=== PATIENT | male | born 1990 | race African-American/Black ===

== ENCOUNTER 2016-07-17 18:58 | Emergency (ER) | payer MEDICAID ==
[2016-07-17 19:29] VITALS: BP 157/77
--- NOTE | 2016-07-17 20:23 | EDM.PDOC ---
[id number] 4d HIT HAND Time Seen by Provider: 07/17/16 20:15 Source: Reports: Patient, RN notes reviewed History Limitations: Reports: No limitations - History of Present Illness INITIAL COMMENTS - FREE TEXT/NARRATIVE: Here with his Chief complaint Left hand injury HPI He was angry and punched a wall with his left hand this morning. Swelling and pain all day no laceration. Pain isn't bad enough to keep him awake but it does hurt. Did not take any analgesics at home No other injuries Allergies/ADRs: Allergies Penicillins Allergy (Verified 04/27/13 08:23) Cannot Remember Home Medications: Ambulatory Orders Ketoconazole [Ketoconazole 2%] 1 applic TOP WEEKLY 11/24/15 [Confirmed 07/17/16] Hydrocodone/Acetaminophen [Hydrocodon-Acetaminophen 5-325] 1 - 2 each PO Q4H PRN #8 tablet 07/17/16 Past Medical History Respiratory History: Reports: Asthma, Other (see below) Other Respiratory History: childhood asthma Dermatologic History: Reports: Other (see below) Other Dermatologic History: states he has problems with skin "turning different colors." currently uses ointment for problem - Past Surgical History Respiratory Surgical History: Reports: None GI Surgical History: Reports: Hernia repair/other Neurological Surgical History: Reports: None Dermatological Surgical History: Reports: None Social & Family History - Family History Family Medical History: Noncontributory - Tobacco Use Smoking Status *Q: Current Some Day Smoker Years of Tobacco use: 5 Packs/Tins Daily: 1 Used Tobacco, but Quit: Yes Month Tobacco Last Used: 10/2015 Second Hand Smoke Exposure: No - Caffeine Use Caffeine Use: Reports: Soda - Alcohol Use Days Per Week of Alcohol Use: 0 - Recreational Drug Use Recreational Drug Use: No Review of Systems - Review of Systems Review Of Systems: ROS reveals no pertinent complaints other than HPI. Skin: Reports: other (Swelling and pain dorsum of left hand particularly on the ulnar aspect) Trauma Exam - Physical Exam Exam: See Below Exam Limited By: No limitations General Appearance: Reports: alert, mild distress, other (Elevated blood pressure otherwise vital signs normal) Head: Reports: atraumatic, normocephalic Respiratory Exam: Reports: no respiratory distress, no accessory muscle use Cardiovascular: Reports: normal peripheral pulses, regular rate, rhythm Extremities: Reports: other (Edema and swelling of the left hand especially dorsal aspect overlying the fourth and fifth left metacarpal bones. Decreased range of motion because of swelling. No skin laceration. No obvious skin discoloration, there is scarring from previous injury as a child.) Neurologic: Reports: no motor/sensory deficits, alert, oriented x 3 Course - Vital Signs Last Recorded V/S: Last Vital Signs Temp 37.2 C 07/17/16 19:26 Pulse 88 07/17/16 19:26 Resp 18 07/17/16 19:26 BP 157/77 H 07/17/16 19:26 Pulse Ox 97 07/17/16 19:26 - Orders/Labs/Meds Orders: Active Orders 24 hr Category Date Time Status Hand Comp Min 3V Lt [CR] Stat Exams 07/17/16 20:19 Taken - Re-Assessments/Exams Free Text/Narrative Re-Assessment/Exam: 07/17/16 20:22 26-year-old male with blunt injury to left hand this morning, swelling and decreased range of motion. No obvious deformity but there is swelling. X-ray left hand undisplaced fracture of the base of the left fourth metacarpal bone Star wrap to hand Followup within one week with primary clinic Pain medicines as below Currently unemployed so he will not be missing work 07/17/16 23:47 Departure - Departure Time of Disposition: 20:47 Disposition: Home, Self-Care 01 Condition: good Clinical Impression: Fracture of base of fourth metacarpal bone of left hand Qualifiers: Encounter type: initial encounter Fracture type: closed Fracture alignment: nondisplaced Qualified Code(s): S62.345A - Nondisplaced fracture of base of fourth metacarpal bone, left hand, initial encounter for closed fracture Prescriptions: Hydrocodone/Acetaminophen [Hydrocodon-Acetaminophen 5-325] 1 - 2 each PO Q4H PRN #8 tablet PRN Reason: Moderate to severe pain Instructions: Metacarpal Fracture, [id number] Referrals: Rafy Frederick PA-C [Primary Care Provider] - Forms: ED Department Discharge Additional Instructions: Fracture of the base of the fourth metacarpal bone of the left hand This appears to be in good position However have it rechecked within 3-5 days, BP x-rays may be necessary. Using Star wrap until the swelling goes down. Take nonprescription pain medications during the day and then prescription pain medications if the pain is severe or at night to help you sleep if needed. You'll be contacted if the radiology report differs from the opinion given dayron. It's anticipated that can take several weeks for the bone to fully heal, avoid injury to the hand, but use a hand within the limits of the pain after a few days rest - My Orders Last 24 Hours: My Active Orders 07/17/16 20:19 Hand Comp Min 3V Lt [CR] Stat - Assessment/Plan Last 24 Hours: My Active Orders 07/17/16 20:19 Hand Comp Min 3V Lt [CR] Stat
--- NOTE | 2016-07-18 09:32 | CR ---
Fourth metacarpal base fracture. This is nondisplaced. Remainder intact.
== END 2016-07-17 21:00 | disposition home or self-care (01) ==
LOC: JP.ED 18:58
DX: S62.345A Nondisplaced fracture of base of fourth metacarpal bone, left hand, initial encounter for closed fracture (principal); F17.210 Nicotine dependence, cigarettes, uncomplicated; Z98.890 Other specified postprocedural states; Z88.0 Allergy status to penicillin; W22.8XXA Striking against or struck by other objects, initial encounter
CPT/HCPCS: 73130-26-LT; 73130-LT; 99284

== ENCOUNTER 2017-02-24 17:08 | Emergency (ER) | payer MEDICAID ==
--- NOTE | 2017-02-24 19:09 | EDM.PDOC ---
ED HPI GENERAL MEDICAL PROBLEM - General Chief Complaint: General Stated Complaint: SOB Time Seen by Provider: 02/24/17 18:50 Source of Information: Reports: Patient, Old Records History Limitations: Reports: No Limitations - History of Present Illness INITIAL COMMENTS - FREE TEXT/NARRATIVE: 27 yo male presents with intermittent episodes of dry mouth and feeling like he might pass out since mid to late morning today. Was seen in urgent care recently for similar sx's and was told it was anxiety, but no tx was given. He has recently been noted to have elevated BS and cholesterol, but his primary is waiting to recheck these when he his fasting. He has no hx of HTN, but has a + FHx of HTN. He had transient nausea without vomiting this morning. No chest pain. Thought his heart was irregular or fast earlier. Most of his sx's have resolved while waiting to be seen in the ER. Onset: Today Onset Date: 02/24/17 Onset Time: 10:00 Duration: Intermittent, Improving Location: Reports: Generalized Quality: Reports: Other (no pain) Severity: Moderate Improves with: Reports: Other (? time) Worsens with: Reports: Other (unknown) Context: Reports: Other (Has untreated elevated BP, glucose, lipids, FHx of HTN) Associated Symptoms: Reports: Malaise (ongoing for a couple mos.), Nausea/ Vomiting (not now). 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) (none) - Related Data Allergies Allergy/AdvReac Type Severity Reaction Status Date / Time Penicillins Allergy Cannot Verified 04/27/13 08:23 Remember Home Meds: Home Meds Ketoconazole [Ketoconazole 2%] 1 applic TOP WEEKLY 11/24/15 [History] Past Medical History Respiratory History: Reports: Asthma, Other (See Below) Other Respiratory History: childhood asthma Dermatologic History: Reports: Other (See Below) Other Dermatologic History: states he has problems with skin "turning different colors." currently uses ointment for problem - Past Surgical History HEENT Surgical History: Reports: Eye Surgery GI Surgical History: Reports: Hernia Repair/Other Neurological Surgical History: Reports: None Social & Family History - Family History Family Medical History: Noncontributory - Tobacco Use Smoking Status *Q: Former Smoker Years of Tobacco use: 5 Packs/Tins Daily: 1 Used Tobacco, but Quit: Yes Month Tobacco Last Used: dec Second Hand Smoke Exposure: No - Caffeine Use Caffeine Use: Reports: Soda - Alcohol Use Days Per Week of Alcohol Use: 0 - Recreational Drug Use Recreational Drug Use: No ED ROS GENERAL - Review of Systems Review Of Systems: See Below Constitutional: Reports: Malaise (x 2 mos.), Fatigue (x 2 mos.). Denies: Fever , Weakness, Diaphoresis, Decreased Appetite HEENT: Reports: No Symptoms Respiratory: Reports: No Symptoms Cardiovascular: Reports: Palpitations (this am, resolved.) Endocrine: Reports: Fatigue (x 2 mos.), High Glucose (noted in urgent care recently.), Other (dry mouth this kandace.). Denies: Low Glucose GI/Abdominal: Reports: No Symptoms : Reports: No Symptoms Musculoskeletal: Reports: No Symptoms Skin: Reports: No Symptoms Neurological: Reports: No Symptoms Psychiatric: Reports: Anxiety (dx in urgent care recently, not on tx.) ED EXAM, GENERAL - Physical Exam Exam: See Below Exam Limited By: No Limitations General Appearance: Alert, WD/WN, No Apparent Distress, Obese Eye Exam: Bilateral Eye: Normal Inspection Ears: Normal External Exam, Normal Canal, Hearing Grossly Normal, Normal TMs Ear Exam: Bilateral Ear: Auricle Normal, Canal Normal Nose: Normal Inspection, Normal Mucosa, No Blood Throat/Mouth: Normal Inspection, Normal Lips, Normal Teeth, Normal Oropharynx, Normal Voice, No Airway Compromise Head: Atraumatic, Normocephalic Neck: Normal Inspection, Supple, Non-Tender Respiratory/Chest: No Respiratory Distress, Lungs Clear, Normal Breath Sounds, No Accessory Muscle Use Cardiovascular: Regular Rate, Rhythm, No Edema GI/Abdominal: Normal Bowel Sounds, Soft, Non-Tender, No Distention Back Exam: Normal Inspection. 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 Last Recorded V/S: Last Vital Signs Temp 36.0 C 02/24/17 18:03 Pulse 95 02/24/17 18:03 Resp 14 02/24/17 18:03 BP 161/84 H 02/24/17 18:03 Pulse Ox 96 02/24/17 18:03 Orthostatic Blood Pressure [ 146/89 Standing] Orthostatic Blood Pressure [ 156/83 Sitting] Orthostatic Blood Pressure [ 155/89 Supine] - Orders/Labs/Meds Orders: Active Orders 24 hr Category Date Time Status Cardiac Monitoring [RC] .As Directed Care 02/24/17 19:03 Active Orthostatic Vital Signs [RC] ASDIRECTED Care 02/24/17 19:03 Active Citalopram [Celexa] Med 02/24/17 20:41 Once 20 mg PO ONETIME ONE Labs: Laboratory Tests 02/24/17 02/24/17 Range/Units 19:13 20:10 Sodium 140 (140-148) mmol/L Potassium 4.1 (3.6-5.2) mmol/L Chloride 103 (100-108) mmol/L Carbon Dioxide 29 (21-32) mmol/L Anion Gap 8.1 (5.0-14.0) mmol/L BUN 9 (7-18) mg/dL Creatinine 1.0 (0.8-1.3) mg/dL Est Cr Clr Drug Dosing 109.98 mL/min Estimated GFR (MDRD) > 60 (>60) Glucose 117 H (74-106) mg/dL Calcium 9.2 (8.5-10.1) mg/dL Urine Color Yellow Urine Appearance Clear Urine pH 8.0 (4.5-8.0) Ur Specific [place] 1.015 (1.008-1.030) Urine Protein Negative (NEGATIVE) mg/dL Urine Glucose (UA) Normal (NEGATIVE) mg/dL Urine Ketones Negative (NEGATIVE) mg/dL Urine Occult Blood Negative (NEGATIVE) Urine Nitrite Negative (NEGAITVE) Urine Bilirubin Negative (NEGATIVE) Urine Urobilinogen Normal (NORMAL) mg/dL Ur Leukocyte Esterase Negative (NEGATIVE) Urine RBC 0-5 (0-5) Urine WBC 0-5 (0-5) Ur Epithelial Cells Rare Amorphous Sediment Not seen Urine Bacteria Rare Urine Mucus Not seen Departure - Departure Time of Disposition: 20:50 Disposition: Home, Self-Care 01 Condition: Good Clinical Impression: Anxiety - Discharge Information Referrals: Rafy Frederick PA-C [Primary Care Provider] - Forms: ED Department Discharge - My Orders Last 24 Hours: My Active Orders 02/24/17 19:03 Cardiac Monitoring [RC] .As Directed Orthostatic Vital Signs [RC] ASDIRECTED 02/24/17 20:41 Citalopram [Celexa] 20 mg PO ONETIME ONE - Assessment/Plan Last 24 Hours: My Active Orders 02/24/17 19:03 Cardiac Monitoring [RC] .As Directed Orthostatic Vital Signs [RC] ASDIRECTED 02/24/17 20:41 Citalopram [Celexa] 20 mg PO ONETIME ONE
[2017-02-24] MEDS ORDERED: Citalopram 20 MG Tab PO ONE (20:41)
[2017-02-24 20:50] VITALS: BP 146/89
== END 2017-02-24 20:58 | disposition home or self-care (01) ==
LOC: JP.ED 17:08
DX: F41.9 Anxiety disorder, unspecified (principal); Z88.0 Allergy status to penicillin; Z87.891 Personal history of nicotine dependence
CPT/HCPCS: 36415; 80048; 81001; 99285; A9270

== ENCOUNTER 2017-02-25 20:20 | Emergency (ER) | payer MEDICAID ==
[2017-02-25] MEDS ORDERED: LORazepam 2 MG/ML MDV IVPUSH ONE (21:38)
[2017-02-25] MEDS ORDERED: Ondansetron 4 MG/2 ML SDV IVPUSH ONE (21:38)
[2017-02-25] MEDS ORDERED: Sodium Chloride 0.9% 1,000 ML IV SCH (21:45)
[2017-02-25 22:54] VITALS: BP 131/65
--- NOTE | 2017-02-25 23:35 | EDM.PDOC ---
ED HPI GENERAL MEDICAL PROBLEM - General Chief Complaint: General Stated Complaint: ILLNESS Time Seen by Provider: 02/25/17 21:07 Source of Information: Reports: Patient, Family () - History of Present Illness INITIAL COMMENTS - FREE TEXT/NARRATIVE: shortness of breath; this is a 27 year old male present to ER with , concerns of ongoing shortness of breath, intermittent episodes of shortness of breath. Report he is worried he may have a heart attack, or fluid around his heart, something wrong in his chest. This has been going on for a few days. came to be sure didn't have a blood clot or heart attack. he was seen yesterday in ER with similar concerns, treated for anxiety, also seen in Urgent Care today, given hydroxyzine, but didn't help. family hx of Father of massive heart attack at age 42 years on 2000. Onset: Gradual Duration: Day(s):. No: Chronic (fatigue for 2 months. 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) Chest Pain Score (Numeric/FACES): 3 - Related Data Allergies Allergy/AdvReac Type Severity Reaction Status Date / Time Penicillins Allergy Cannot Verified 04/27/13 08:23 Remember Home Meds: Home Meds Ketoconazole [Ketoconazole 2%] 1 applic TOP WEEKLY 11/24/15 [History] Citalopram [Citalopram HBr] 20 mg PO DAILY #30 tab 02/24/17 [Rx] hydrOXYzine Pamoate [Hydroxyzine Pamoate] 25 mg PO Q6HR PRN 02/25/17 [History] Past Medical History Respiratory History: Reports: Asthma, Other (See Below) Other Respiratory History: childhood asthma Psychiatric History: Reports: Anxiety, Depression Dermatologic History: Reports: Other (See Below) Other Dermatologic History: states he has problems with skin "turning different colors." currently uses ointment for problem - Past Surgical History HEENT Surgical History: Reports: Eye Surgery GI Surgical History: Reports: Hernia Repair/Other Neurological Surgical History: Reports: None Social & Family History - Family History Family Medical History: Noncontributory - Tobacco Use Smoking Status *Q: Former Smoker Years of Tobacco use: 10 Packs/Tins Daily: 0.5 Used Tobacco, but Quit: No Month Tobacco Last Used: dec Second Hand Smoke Exposure: No - Caffeine Use Caffeine Use: Reports: None - Alcohol Use Days Per Week of Alcohol Use: 0 - Recreational Drug Use Recreational Drug Use: No - Living Situation & Occupation Living situation: Reports: (lives with in [place], [place].) ED ROS GENERAL - Review of Systems Review Of Systems: See Below Constitutional: Reports: Malaise, Fatigue HEENT: Reports: No Symptoms Respiratory: Reports: Shortness of Breath, Cough (occasionaly) Cardiovascular: Reports: Other (reports has been exercising, jogging, lifting wt , , pushing; no chest pain with activity.) Endocrine: Reports: No Symptoms GI/Abdominal: Reports: Nausea (feeling sick to stomache) : Reports: No Symptoms Musculoskeletal: Reports: No Symptoms Skin: Reports: No Symptoms Neurological: Reports: No Symptoms Psychiatric: Reports: Anxiety (reports hx of anxiety, panic and depression since childhood. ) Hematologic/Lymphatic: Reports: No Symptoms Immunologic: Reports: No Symptoms ED EXAM, GENERAL - Physical Exam Exam: See Below Exam Limited By: No Limitations General Appearance: Alert, WD/WN, No Apparent Distress Eye Exam: Bilateral Eye: PERRL Ears: Normal External Exam, Normal Canal, Hearing Grossly Normal, Normal TMs Ear Exam: Bilateral Ear: Auricle Normal, Canal Normal, TM normal Nose: Normal Inspection, Normal Mucosa, No Blood Throat/Mouth: Normal Inspection, Normal Lips, Normal Teeth, Normal Gums, Normal Oropharynx, Normal Voice, No Airway Compromise Head: Atraumatic, Normocephalic Neck: Normal Inspection, Supple, Non-Tender, Full Range of Motion Respiratory/Chest: No Respiratory Distress, Lungs Clear, Normal Breath Sounds, No Accessory Muscle Use, Chest Non-Tender GI/Abdominal: Normal Bowel Sounds, Soft, Non-Tender, No Organomegaly, No Distention, No Abnormal Bruit, No Mass (Male) Exam: Deferred Rectal (Males) Exam: Deferred Back Exam: Normal Inspection, Full Range of Motion, NT Extremities: Normal Inspection, Normal Range of Motion, Non-Tender, Normal Capillary Refill, No Pedal Edema Neurological: Alert, Oriented, CN II-XII Intact, Normal Cognition, Normal Gait, Normal Reflexes, No Motor/Sensory Deficits Psychiatric: Normal Affect, Normal Mood Skin Exam: Warm, Dry, Intact, Normal Color, Tattoo(s), Other (extremely dry skin ) Course - Vital Signs Last Recorded V/S: Last Vital Signs Temp 37.1 C 02/25/17 20:55 Pulse 75 02/25/17 22:53 Resp 14 02/25/17 22:53 BP 131/65 02/25/17 22:53 Pulse Ox 93 L 02/25/17 22:53 - Orders/Labs/Meds Orders: Active Orders 24 hr Category Date Time Status EKG Documentation Completion [RC] ASDIRECTED Care 02/25/17 21:36 Active Chest 2V [CR] Urgent Exams 02/25/17 21:35 Taken Sodium Chloride 0.9% [Normal Saline] 1,000 ml Med 02/25/17 21:45 Active IV ASDIRECTED EKG 12 Lead [EK] Urgent Ther 02/25/17 21:35 Ordered Medication Orders Sodium Chloride (Normal Saline) 1,000 mls @ 999 mls/hr IV ASDIRECTED GREGORIO Last Admin: 02/25/17 21:56 Dose: 999 mls/hr Labs: Laboratory Tests 02/25/17 02/25/17 02/25/17 Range/Units 21:54 21:54 21:54 WBC 10.0 (4.5-11.0) K/uL RBC 6.09 H (4.30-5.90) M/uL Hgb 16.4 H (12.0-15.0) g/dL Hct 47.5 (40.0-54.0) % MCV 78 L (80-98) fL MCH 27 (27-31) pg MCHC 35 (32-36) % Plt Count 216 (150-400) K/uL Neut % (Auto) 68 H (36-66) % Lymph % (Auto) 21 L (24-44) % [place] % (Auto) 10 H (2-6) % Eos % (Auto) 1 L (2-4) % Baso % (Auto) 1 (0-1) % D-Dimer, Quantitative < 100 (0.0-400.0) ng/mL Sodium 139 L (140-148) mmol/L Potassium 4.4 (3.6-5.2) mmol/L Chloride 103 (100-108) mmol/L Carbon Dioxide 28 (21-32) mmol/L Anion Gap 12.4 (5.0-14.0) mmol/L BUN 9 (7-18) mg/dL Creatinine 0.9 (0.8-1.3) mg/dL Est Cr Clr Drug Dosing 122.20 mL/min Estimated GFR (MDRD) > 60 (>60) Glucose 109 H (74-106) mg/dL Calcium 9.3 (8.5-10.1) mg/dL Troponin I < 0.017 (0.000-0.056) ng/mL Amylase (25-115) U/L Lipase (73-393) U/L TSH, Ultra Sensitive (0.358-3.740) uIU/mL 02/25/17 Range/Units 21:54 WBC (4.5-11.0) K/uL RBC (4.30-5.90) M/uL Hgb (12.0-15.0) g/dL Hct (40.0-54.0) % MCV (80-98) fL MCH (27-31) pg MCHC (32-36) % Plt Count (150-400) K/uL Neut % (Auto) (36-66) % Lymph % (Auto) (24-44) % [place] % (Auto) (2-6) % Eos % (Auto) (2-4) % Baso % (Auto) (0-1) % D-Dimer, Quantitative (0.0-400.0) ng/mL Sodium (140-148) mmol/L Potassium (3.6-5.2) mmol/L Chloride (100-108) mmol/L Carbon Dioxide (21-32) mmol/L Anion Gap (5.0-14.0) mmol/L BUN (7-18) mg/dL Creatinine (0.8-1.3) mg/dL Est Cr Clr Drug Dosing mL/min Estimated GFR (MDRD) (>60) Glucose (74-106) mg/dL Calcium (8.5-10.1) mg/dL Troponin I (0.000-0.056) ng/mL Amylase 42 (25-115) U/L Lipase 81 (73-393) U/L TSH, Ultra Sensitive 1.026 (0.358-3.740) uIU/mL Meds: Medications Generic Name Dose Route Start Last Admin Trade Name Freq PRN Reason Stop Dose Admin Sodium Chloride 1,000 mls @ 999 mls/hr 02/25/17 21:45 02/25/17 21:56 Normal Saline IV 999 mls/hr ASDIRECTED GREGORIO Administration Discontinued Medications Generic Name Dose Route Start Last Admin Trade Name Dani PRN Reason Stop Dose Admin Lorazepam 1 mg 02/25/17 21:38 02/25/17 22:23 Ativan IVPUSH 02/25/17 21:39 1 mg ONETIME ONE Administration Ondansetron HCl 4 mg 02/25/17 21:38 02/25/17 22:20 Zofran IVPUSH 02/25/17 21:39 4 mg ONETIME ONE Administration - Re-Assessments/Exams Free Text/Narrative Re-Assessment/Exam: 02/26/17 01:51 labs;cbc, chemistry, d-dimer, amylase, lipase, tsh, troponin all within normal limits imaging; chest xray. no acute pathology noted on wet read, no infiltrates or mass. heart normal shape and size EKG; sinus rhythm Mr. Romano was give IV Ativan 1mg , IV Zofran, one liter of normal saline. symptoms resolved. reports best he has slept in a few days Mr. Romano has an appointment with Primary Care Provider this week for follow up. Departure - Departure Time of Disposition: 23:29 Disposition: Home, Self-Care 01 Condition: Good Clinical Impression: Anxiety - Discharge Information Instructions: Panic Attacks, [id number] Referrals: Rafy Frederick PA-C [Primary Care Provider] - Forms: ED Department Discharge Care Plan Goals: Anxiety -labs, EKG and chest xray are within normal limits -symptoms resolved with Ativan, Zofran and IV fluids. -take Ativan 1 mg in morning and evening as needed for symptoms -take medications as prescribed by Primary Care -keep appointment with Primary Care Provider this weeks. Return to Clinic, Urgent Care or ER if not improved or symptoms worsen. copies of labs were given to and reviewed. - Problem List & Annotations (1) Anxiety SNOMED Code(s): 27520403 Code(s): F41.9 - ANXIETY DISORDER, UNSPECIFIED Status: Acute Priority: High Current Visit: Yes - Problem List Review Problem List Initiated/Reviewed/Updated: Yes - My Orders Last 24 Hours: My Active Orders 02/25/17 21:35 Chest 2V [CR] Urgent EKG 12 Lead [EK] Urgent 02/25/17 21:36 EKG Documentation Completion [RC] ASDIRECTED 02/25/17 21:45 Sodium Chloride 0.9% [Normal Saline] 1,000 ml IV ASDIRECTED - Assessment/Plan Last 24 Hours: My Active Orders 02/25/17 21:35 Chest 2V [CR] Urgent EKG 12 Lead [EK] Urgent 02/25/17 21:36 EKG Documentation Completion [RC] ASDIRECTED 02/25/17 21:45 Sodium Chloride 0.9% [Normal Saline] 1,000 ml IV ASDIRECTED Plan: Anxiety -labs, EKG and chest xray are within normal limits -symptoms resolved with Ativan, Zofran and IV fluids. -take Ativan 1 mg in morning and evening as needed for symptoms -take medications as prescribed by Primary Care -keep appointment with Primary Care Provider this weeks. Return to Clinic, Urgent Care or ER if not improved or symptoms worsen. copies of labs were given to and reviewed.
--- NOTE | 2017-02-26 09:36 | CR ---
Heart size within normal limits. Pulmonary vasculature within normal limits. No focal consolidation.
== END 2017-02-26 01:15 | disposition home or self-care (01) ==
LOC: JP.ED 20:20
DX: F41.9 Anxiety disorder, unspecified (principal); F32.9 Major depressive disorder, single episode, unspecified; Z87.891 Personal history of nicotine dependence; Z79.899 Other long term (current) drug therapy; Z88.0 Allergy status to penicillin
CPT/HCPCS: 36415; 71020; 80048; 82150; 83690; 84443; 84484; 85025; 85379; 93005; 96361; 96374; 96375; 99285; J2060; J2405; J7040

== ENCOUNTER 2017-07-06 23:51 | Emergency (ER) | payer MEDICAID ==
[2017-07-07 00:16] VITALS: BP 154/93
--- NOTE | 2017-07-07 00:56 | EDM.PDOC ---
ED HPI GENERAL MEDICAL PROBLEM - General Chief Complaint: General Stated Complaint: LEFT LEG PAIN Time Seen by Provider: 07/07/17 00:35 Source of Information: Reports: Patient, Old Records, RN History Limitations: Reports: No Limitations - History of Present Illness INITIAL COMMENTS - FREE TEXT/NARRATIVE: 27 yo black male noticed tonight while he was "playing his music" that he had trouble moving his L great toe the way he normally can and had some mild tightness to the L ambriz area. Says he can't cross his L great toe over the 2nd toe like he can on the other foot. He denies any back pain or recent injury. Has no family doctor currently. 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) - Related Data Allergies Allergy/AdvReac Type Severity Reaction Status Date / Time Penicillins Allergy Cannot Verified 07/07/17 00:14 Remember Home Meds: Home Meds Ketoconazole [Ketoconazole 2%] 1 applic TOP WEEKLY 11/24/15 [History] Past Medical History Respiratory History: Reports: Asthma, Other (See Below) Other Respiratory History: childhood asthma Psychiatric History: Reports: Anxiety, Depression Dermatologic History: Reports: Other (See Below) Other Dermatologic History: states he has problems with skin "turning different colors." currently uses ointment for problem - Past Surgical History GI Surgical History: Reports: Hernia Repair/Other Neurological Surgical History: Reports: None Social & Family History - Family History Family Medical History: Noncontributory - Tobacco Use Smoking Status *Q: Never Smoker Years of Tobacco use: 10 Packs/Tins Daily: 0.5 Used Tobacco, but Quit: No Month/Year Tobacco Last Used: dec Second Hand Smoke Exposure: No - Caffeine Use Caffeine Use: Reports: None - Alcohol Use Days Per Week of Alcohol Use: 0 - Recreational Drug Use Recreational Drug Use: No - Living Situation & Occupation Living situation: Reports: (lives with in [place], [place].) ED ROS GENERAL - Review of Systems Review Of Systems: See Below Constitutional: Reports: No Symptoms HEENT: Reports: No Symptoms Respiratory: Reports: No Symptoms Cardiovascular: Reports: No Symptoms GI/Abdominal: Reports: No Symptoms : Reports: No Symptoms Musculoskeletal: Reports: Other (L great toe weak to extension) Skin: Reports: No Symptoms Neurological: Reports: Dizziness (intermittently) Psychiatric: Reports: No Symptoms ED EXAM, GENERAL - Physical Exam Exam: See Below Exam Limited By: No Limitations General Appearance: Alert, WD/WN, No Apparent Distress Eye Exam: Bilateral Eye: Normal Inspection Ears: Normal External Exam, Normal Canal, Hearing Grossly Normal Ear Exam: Bilateral Ear: Auricle Normal, Canal Normal Nose: Normal Inspection, Normal Mucosa, No Blood Throat/Mouth: Normal Inspection, Normal Lips, Normal Oropharynx, Normal Voice, No Airway Compromise Head: Atraumatic, Normocephalic Neck: Normal Inspection Respiratory/Chest: No Respiratory Distress, No Accessory Muscle Use Cardiovascular: Regular Rate, Rhythm Back Exam: Normal Inspection, Other (no vertebral tenderness with percussion.). No: Vertebral Tenderness Extremities: Normal Inspection, Normal Range of Motion, Non-Tender, No Pedal Edema Neurological: Alert, Oriented, CN II-XII Intact, Normal Cognition, Normal Gait, Normal Reflexes, Other (good foot extension strength bilaterally. L great toe has full passive, pain-free ROM, but unable to extend against resisistance. ) Psychiatric: Normal Affect, Normal Mood Skin Exam: Warm, Dry, Intact, Normal Color, No Rash Lymphatic: No Adenopathy Course - Vital Signs Last Recorded V/S: Last Vital Signs Temp 35.4 C 07/07/17 00:15 Pulse 90 07/07/17 00:15 Resp 18 07/07/17 00:15 BP 154/93 H 07/07/17 00:15 Pulse Ox 97 07/07/17 00:15 Departure - Departure Time of Disposition: 01:00 Disposition: Home, Self-Care 01 Condition: Good Clinical Impression: Lumbosacral radiculopathy at L5 - Discharge Information Referrals: PCP,None [Primary Care Provider] -
== END 2017-07-07 01:11 | disposition home or self-care (01) ==
LOC: JP.ED 23:51
DX: M54.17 Radiculopathy, lumbosacral region (principal); F41.9 Anxiety disorder, unspecified; F32.9 Major depressive disorder, single episode, unspecified; Z88.0 Allergy status to penicillin
CPT/HCPCS: 99283

== ENCOUNTER 2017-08-10 22:00 | Emergency (ER) | payer MEDICAID ==
[2017-08-10 22:43] VITALS: BP 152/109
[2017-08-10] MEDS ORDERED: LORazepam 0.5 MG Tab PO ONE (23:07)
--- NOTE | 2017-08-10 23:08 | EDM.PDOC ---
ED HPI GENERAL MEDICAL PROBLEM - General Chief Complaint: ENT Problem Stated Complaint: HARD TIME SWOLLING/MOUTH DRY Time Seen by Provider: 08/10/17 22:55 Source of Information: Reports: Patient, RN Notes Reviewed History Limitations: Reports: No Limitations - History of Present Illness INITIAL COMMENTS - FREE TEXT/NARRATIVE: 27-year-old gentleman presents emergency department with multiple complaints C. He states he has had intermittent dizziness, dry mouth and going on for 6 months recent post to the emergency department today is that he wants to stop.. Denies any nausea, vomiting, fevers, shortness of breath, chest pain, or GI symptomatology., Takes no medications no unusual food products - Related Data Allergies Allergy/AdvReac Type Severity Reaction Status Date / Time Penicillins Allergy Cannot Verified 08/10/17 22:53 Remember Home Meds: Home Meds NK [No Known Home Meds] 08/10/17 [History] Past Medical History Respiratory History: Reports: Asthma, Other (See Below) Other Respiratory History: childhood asthma Psychiatric History: Reports: Anxiety, Depression Dermatologic History: Reports: Other (See Below) Other Dermatologic History: states he has problems with skin "turning different colors." currently uses ointment for problem - Past Surgical History HEENT Surgical History: Reports: Eye Surgery GI Surgical History: Reports: Hernia Repair/Other Neurological Surgical History: Reports: None Other Oncologic Surgeries/Procedures: LIPOMA REMOVAL Social & Family History - Family History Family Medical History: Noncontributory - Tobacco Use Smoking Status *Q: Unknown Ever Smoked - Caffeine Use Caffeine Use: Reports: None - Living Situation & Occupation Living situation: Reports: (lives with in [place], [place].) ED ROS GENERAL - Review of Systems Review Of Systems: See Below Constitutional: Reports: No Symptoms HEENT: Reports: Throat Pain, Other Respiratory: Reports: No Symptoms (Try mouth) Cardiovascular: Reports: No Symptoms GI/Abdominal: Reports: No Symptoms : Reports: No Symptoms Musculoskeletal: Reports: No Symptoms Skin: Reports: No Symptoms Neurological: Reports: Dizziness ED EXAM, GENERAL - Physical Exam Exam: See Below Free Text/Narrative:: General: Male, not in any distress, alert and oriented x3 HEENT: head is atraumatic normocephalic, eyes pupils equal round reactive to light, sclera clear no conjunctivitis appreciated. Ears tympanic membranes clear and mclaughlin landmarks and light reflex are present bilaterally canals are clear. Nose no septal deviation, nares are clear, no blood present. Mouth mucosa is moist and pink no erythema or exudate noted in soft palate, tongue is midline uvula is midline, dentition is intact. Neck: Supple no thyromegaly no tracheal deviation. Nodes: Cervical nodes subclavicular nodes nontender no palpable lymphadenopathy noted. Lungs: clear to auscultation bilaterally with symmetrical respirations, no adventitious noise appreciated. CV: Regular rate and rhythm S1 and S2 appreciated no murmurs rubs or gallops noted. Abdomen: Soft, nontender, no palpable masses or organomegaly appreciated, no distention no guarding bowel sounds are present, Exam Limited By: No Limitations General Appearance: Alert, WD/WN, No Apparent Distress Course - Vital Signs Last Recorded V/S: Last Vital Signs Temp 98.1 F 08/10/17 22:52 Pulse 82 08/10/17 22:52 Resp 16 08/10/17 22:52 BP 152/109 H 08/10/17 22:52 Pulse Ox 100 08/10/17 22:52 - Orders/Labs/Meds Labs: Laboratory Tests 08/10/17 08/10/17 08/10/17 Range/Units 23:09 23:09 23:09 WBC 9.5 (4.5-11.0) K/uL RBC 5.79 (4.30-5.90) M/uL Hgb 15.9 H (12.0-15.0) g/dL Hct 45.6 (40.0-54.0) % MCV 79 L (80-98) fL MCH 28 (27-31) pg MCHC 35 (32-36) % Plt Count 242 (150-400) K/uL Neut % (Auto) 52 (36-66) % Lymph % (Auto) 36 (24-44) % [place] % (Auto) 10 H (2-6) % Eos % (Auto) 2 (2-4) % Baso % (Auto) 1 (0-1) % Sodium 143 (140-148) mmol/L Potassium 3.5 L (3.6-5.2) mmol/L Chloride 105 (100-108) mmol/L Carbon Dioxide 26 (21-32) mmol/L Anion Gap 15.5 H (5.0-14.0) mmol/L BUN 10 (7-18) mg/dL Creatinine 1.0 (0.8-1.3) mg/dL Est Cr Clr Drug Dosing 109.98 mL/min Estimated GFR (MDRD) > 60 (>60) Glucose 112 H (74-106) mg/dL Calcium 8.3 L (8.5-10.1) mg/dL Total Bilirubin 0.9 (0.2-1.0) mg/dL AST 20 (15-37) U/L ALT 35 (12-78) U/L Alkaline Phosphatase 112 (46-116) U/L Total Protein 7.1 (6.4-8.2) g/dL Albumin 3.9 (3.4-5.0) g/dL Globulin 3.2 (2.3-3.5) g/dL Albumin/Globulin Ratio 1.2 (1.2-2.2) TSH, Ultra Sensitive 1.285 (0.358-3.740) uIU/mL Meds: Medications Discontinued Medications Generic Name Dose Route Start Last Admin Trade Name Dani PRN Reason Stop Dose Admin Lorazepam 0.5 mg 08/10/17 23:07 08/10/17 23:23 Ativan PO 08/10/17 23:08 Not Given ONETIME ONE Meclizine HCl 25 mg 08/10/17 23:02 08/10/17 23:22 Antivert PO 08/10/17 23:03 25 mg ONETIME ONE Administration Meclizine HCl Confirm 08/10/17 23:20 08/10/17 23:51 Antivert Administered 08/10/17 23:21 Not Given Dose 25 mg .ROUTE .STK-MED ONE Departure - Departure Time of Disposition: 00:20 Disposition: Home, Self-Care 01 Condition: Fair Clinical Impression: Dizziness - Discharge Information Referrals: PCP,None [Primary Care Provider] - Forms: ED Department Discharge Additional Instructions: Try the meclizine as needed for dizziness symptoms, recommend follow-up with primary care for reevaluation of anxiety, call or return to the emergency department with worsening of symptoms - Assessment/Plan Plan: Assessment Acuity = acute Site and laterality = dizziness, dysphagia Etiology = probably related to underlying anxiety component Manifestations = none Location of injury = Home Lab values = CBC, CMP, thyroid all within normal limits Plan He had good relief from the meclizine, prescription written for meclizine 25 mg by mouth 3 times a day when necessary, follow-up with primary care the next 3-5 days for reevaluation This note was dictated using [employer] voice recognition software please call with any questions on syntax or grammar.
[2017-08-10] MEDS ORDERED: Meclizine 25 MG Tab ONE (23:20)
[2017-08-10] MEDS: Meclizine 25 MG Tab PO ONE ×2 (23:22→23:51)
== END 2017-08-11 00:25 | disposition home or self-care (01) ==
LOC: JP.ED 22:00
DX: R42 Dizziness and giddiness (principal); R13.10 Dysphagia, unspecified; Z88.0 Allergy status to penicillin
CPT/HCPCS: 36415; 80053; 84443; 85025; 99283; A9270

== ENCOUNTER 2017-10-01 02:20 | Emergency (ER) | payer MEDICAID ==
[2017-10-01 02:31] VITALS: BP 146/94
--- NOTE | 2017-10-01 02:42 | EDM.PDOC ---
ED HPI GENERAL MEDICAL PROBLEM - General Chief Complaint: General Stated Complaint: HEAD PRESSURE Time Seen by Provider: 10/01/17 02:25 Source of Information: Reports: Patient History Limitations: Reports: No Limitations - History of Present Illness INITIAL COMMENTS - FREE TEXT/NARRATIVE: 27-year-old male has an intermittent pressure on the left side of his temporal area, just had a neurology consult and the CT scan but doesn't know the results and is nervous about it. He currently feels okay. No nausea or vomiting, no visual disturbances. Onset: Unknown/Unsure (Symptoms are chronic) Location: Reports: Head Severity: Mild Headache Pain Score (Numeric/FACES): 2 - Related Data Allergies Allergy/AdvReac Type Severity Reaction Status Date / Time Penicillins Allergy Cannot Verified 08/10/17 22:53 Remember Home Meds: Home Meds NK [No Known Home Meds] 08/10/17 [History] Past Medical History Respiratory History: Reports: Asthma, Other (See Below) Other Respiratory History: childhood asthma Psychiatric History: Reports: Anxiety, Depression Dermatologic History: Reports: Other (See Below) Other Dermatologic History: states he has problems with skin "turning different colors." currently uses ointment for problem - Past Surgical History HEENT Surgical History: Reports: Eye Surgery GI Surgical History: Reports: Hernia Repair/Other Neurological Surgical History: Reports: None Other Oncologic Surgeries/Procedures: LIPOMA REMOVAL Social & Family History - Family History Family Medical History: Noncontributory - Tobacco Use Smoking Status *Q: Never Smoker - Caffeine Use Caffeine Use: Reports: Soda - Recreational Drug Use Recreational Drug Use: No - Living Situation & Occupation Living situation: Reports: (lives with in [place], [place].) ED ROS GENERAL - Review of Systems Review Of Systems: See Below Constitutional: Denies: Fever, Chills HEENT: Denies: Vision Change Respiratory: Denies: Shortness of Breath GI/Abdominal: Denies: Nausea, Vomiting Skin: Denies: Rash Neurological: Reports: Headache Psychiatric: Reports: Anxiety ED EXAM, GENERAL - Physical Exam Exam: See Below Exam Limited By: No Limitations General Appearance: Alert, No Apparent Distress Eye Exam: Bilateral Eye: EOMI, PERRL Ears: Normal TMs Head: Atraumatic Neck: Non-Tender Respiratory/Chest: No Respiratory Distress Neurological: Alert, Oriented Psychiatric: Normal Affect, Normal Mood Skin Exam: Warm, Dry Course - Vital Signs Last Recorded V/S: Last Vital Signs Temp 96.2 F 10/01/17 02:30 Pulse 80 10/01/17 02:30 Resp 16 10/01/17 02:30 BP 146/94 H 10/01/17 02:30 Pulse Ox 97 10/01/17 02:30 - Re-Assessments/Exams Free Text/Narrative Re-Assessment/Exam: 10/01/17 02:[address] scan which showed no acute findings. Explained this to the patient and he felt better. Nothing needs to be treated at this time. Departure - Departure Time of Disposition: 02:46 Disposition: Home, Self-Care 01 Condition: Good Clinical Impression: Anxiety about health Headache Qualifiers: Headache type: unspecified Headache chronicity pattern: chronic headache Intractability: not intractable Qualified Code(s): R51 - Headache - Discharge Information Instructions: Living With Anxiety Referrals: PCP,None [Primary Care Provider] - Forms: ED Department Discharge Care Plan Goals: Try to get some rest and increase activity as tolerated. Discuss any further concerns with Dr. Fernandez on Saturday.
== END 2017-10-01 02:47 | disposition home or self-care (01) ==
LOC: JP.ED 02:20
DX: R51 Headache (principal); F41.9 Anxiety disorder, unspecified; F32.9 Major depressive disorder, single episode, unspecified; Z88.0 Allergy status to penicillin
CPT/HCPCS: 99284

== ENCOUNTER 2017-10-25 00:09 | Emergency (ER) | payer MEDICAID ==
[2017-10-25] MEDS ORDERED: Sodium Chloride 0.9% 10 ML Syringe FLUSH PRN (01:15)
[2017-10-25] MEDS ORDERED: Ketorolac 30 MG/ML SDV IVPUSH ONE (01:15)
--- NOTE | 2017-10-25 01:18 | EDM.PDOC ---
ED HPI GENERAL MEDICAL PROBLEM - General Chief Complaint: Back Pain or Injury Stated Complaint: RT SIDE/BACK PAIN (KIDNEY STONE) Time Seen by Provider: 10/25/17 01:00 Source of Information: Reports: Patient History Limitations: Reports: No Limitations - History of Present Illness INITIAL COMMENTS - FREE TEXT/NARRATIVE: 27-year-old male has redeveloped right flank pain and ureteral colic over the past 4 hours. He was seen with the right nephrolithiasis several weeks ago, he has been generally asymptomatic until tonight at 10:00. Some nausea but no vomiting. He is very uncomfortable, the pain is worse than his original case of renal colic. Onset: Sudden Duration: Hour(s): (4 hours ago) Location: Reports: Back (Right flank) Severity: Moderate Associated Symptoms: Reports: Nausea/Vomiting. Denies: Chest Pain, Cough, Fever /Chills, Shortness of Breath right lower back pain Pain Score (Numeric/FACES): 7 - Related Data Allergies Allergy/AdvReac Type Severity Reaction Status Date / Time Penicillins Allergy Cannot Verified 10/25/17 01:59 Remember Home Meds: Home Meds NK [No Known Home Meds] 08/10/17 [History] Past Medical History Respiratory History: Reports: Asthma, Other (See Below) Other Respiratory History: childhood asthma Psychiatric History: Reports: Anxiety Dermatologic History: Reports: Other (See Below) Other Dermatologic History: states he has problems with skin "turning different colors." currently uses ointment for problem - Past Surgical History GI Surgical History: Reports: Hernia Repair/Other Other Oncologic Surgeries/Procedures: LIPOMA REMOVAL Social & Family History - Family History Family Medical History: Noncontributory - Caffeine Use Caffeine Use: Reports: Soda - Living Situation & Occupation Living situation: Reports: (lives with in [place], [place].) ED ROS GENERAL - Review of Systems Review Of Systems: See Below Constitutional: Reports: Malaise. Denies: Fever, Chills HEENT: Reports: No Symptoms Respiratory: Reports: Shortness of Breath (Intermittent mild shortness of breath related to anxiety) Cardiovascular: Denies: Chest Pain GI/Abdominal: Reports: Nausea. Denies: Abdominal Pain, Vomiting : Reports: Flank Pain, Urgency Skin: Reports: Other (Scattered areas of vitiligo) Neurological: Denies: Headache Psychiatric: Reports: Anxiety ED EXAM, GENERAL - Physical Exam Exam: See Below Exam Limited By: No Limitations General Appearance: Alert, Moderate Distress (Looks fairly uncomfortable) Head: Atraumatic Respiratory/Chest: No Respiratory Distress Cardiovascular: Regular Rate, Rhythm GI/Abdominal: Non-Tender Neurological: Alert, Oriented Psychiatric: Anxious Skin Exam: Warm, Dry Course - Vital Signs Last Recorded V/S: Last Vital Signs Temp 96.8 F 10/25/17 01:49 Pulse 98 10/25/17 01:49 Resp 14 10/25/17 01:49 BP 144/92 H 10/25/17 01:49 Pulse Ox 98 10/25/17 01:49 - Orders/Labs/Meds Orders: Active Orders 24 hr Category Date Time Status Saline Lock Insert [OM.PC] Routine Oth 10/25/17 01:15 Ordered Meds: Medications Discontinued Medications Generic Name Dose Route Start Last Admin Trade Name Freq PRN Reason Stop Dose Admin Ketorolac Tromethamine 30 mg 10/25/17 01:15 10/25/17 01:24 Toradol IVPUSH 10/25/17 01:16 30 mg ONETIME ONE Administration Sodium Chloride 10 ml 10/25/17 01:15 10/25/17 01:24 Saline Flush FLUSH 10 ml ASDIRECTED PRN Administration Keep Vein Open - Re-Assessments/Exams Free Text/Narrative Re-Assessment/Exam: 10/25/17 01:18 A saline lock was started and the patient given 30 mg of IV Toradol. 10/25/17 01:55 Within 10 minutes of receiving the Toradol the pain was completely resolved. We discussed repeating the CT scan versus giving this a day or 2, and because the patient has been completely asymptomatic for the past week we elected to wait 24 -48 hours to see if the pain recurs. Departure - Departure Time of Disposition: 02:10 Disposition: Home, Self-Care 01 Condition: Good Clinical Impression: Ureteric colic - Discharge Information Instructions: Kidney Stones, [id number] Referrals: Rodrigo Harrison PA [Primary Care Provider] - Forms: ED Department Discharge Care Plan Goals: Ibuprofen or naproxen may help if pain recurs, and it is important to stay hydrated with water. Return to the emergency room at any time if pain is significant and persistent. Also return if you develop a fever or persistent nausea and vomiting. Consider rechecking in 3-4 days if not improving satisfactorily. - My Orders Last 24 Hours: My Active Orders 10/25/17 01:15 Saline Lock Insert [OM.PC] Routine - Assessment/Plan Last 24 Hours: My Active Orders 10/25/17 01:15 Saline Lock Insert [OM.PC] Routine
[2017-10-25 01:50] VITALS: BP 144/92
== END 2017-10-25 02:10 | disposition home or self-care (01) ==
LOC: JP.ED 00:09
DX: N23 Unspecified renal colic (principal); Z88.0 Allergy status to penicillin
CPT/HCPCS: 96374; 99284; J1885; J7050

== ENCOUNTER 2017-11-05 20:00 | Emergency (ER) | payer MEDICAID ==
[2017-11-05 20:24] VITALS: BP 151/97
--- NOTE | 2017-11-05 21:24 | EDM.PDOC ---
ED HPI GENERAL MEDICAL PROBLEM - General Chief Complaint: Genitourinary Problem Stated Complaint: BLOOD IN URINE Time Seen by Provider: 11/05/17 21:12 Source of Information: Reports: Patient, Old Records, RN Notes Reviewed History Limitations: Reports: No Limitations - History of Present Illness INITIAL COMMENTS - FREE TEXT/NARRATIVE: 27-year-old gentleman presents to the emergency department today complaint of burning with urination, he recently had a kidney stone at the end of last month has been dealing with passing for the last couple weeks and now over the last day or so he's developed blood in his urine with frequency no fevers Pelvic Pain Score (Numeric/FACES): 3 - Related Data Allergies Allergy/AdvReac Type Severity Reaction Status Date / Time Penicillins Allergy Cannot Verified 11/05/17 20:24 Remember Home Meds: Home Meds NK [No Known Home Meds] 08/10/17 [History] Past Medical History Respiratory History: Reports: Asthma, Other (See Below) Other Respiratory History: childhood asthma Genitourinary History: Reports: Renal Calculus Psychiatric History: Reports: Anxiety Dermatologic History: Reports: Other (See Below) Other Dermatologic History: states he has problems with skin "turning different colors." currently uses ointment for problem - Past Surgical History HEENT Surgical History: Reports: Eye Surgery GI Surgical History: Reports: Hernia Repair/Other Neurological Surgical History: Reports: None Other Oncologic Surgeries/Procedures: LIPOMA REMOVAL Social & Family History - Family History Family Medical History: Noncontributory - Tobacco Use Smoking Status *Q: Former Smoker Used Tobacco, but Quit: Yes Month/Year Tobacco Last Used: 1 year - Caffeine Use Caffeine Use: Reports: Soda - Recreational Drug Use Recreational Drug Use: No - Living Situation & Occupation Living situation: Reports: (lives with in [place], [place].) ED ROS GENERAL - Review of Systems Review Of Systems: See Below Constitutional: Reports: No Symptoms. Denies: Fever GI/Abdominal: Reports: No Symptoms : Reports: Dysuria, Frequency, Hematuria. Denies: Flank Pain ED EXAM, RENAL/ - Physical Exam Exam: See Below Exam Limited By: No Limitations General Appearance: Alert, WD/WN, No Apparent Distress Respiratory/Chest: No Respiratory Distress GI/Abdominal: Soft, Non-Tender Back Exam: Normal Inspection, Full Range of Motion. No: CVA Tenderness (R), CVA Tenderness (L) Course - Vital Signs Last Recorded V/S: Last Vital Signs Temp 98.1 F 11/05/17 20:21 Pulse 90 11/05/17 20:21 Resp 16 11/05/17 20:21 BP 151/97 H 11/05/17 20:21 Pulse Ox 98 11/05/17 20:21 - Orders/Labs/Meds Orders: Active Orders 24 hr Category Date Time Status CULTURE URINE [RM] Urgent Lab 11/05/17 21:18 Ordered UA W/MICROSCOPIC [URIN] Urgent Lab 11/05/17 20:30 Ordered Labs: Laboratory Tests 11/05/17 Range/Units 20:30 Urine Color Red Urine Appearance Turbid Urine pH 6.0 (4.5-8.0) Ur Specific Soldier 1.020 (1.008-1.030) Urine Protein 30 H (NEGATIVE) mg/dL Urine Glucose (UA) 100 H (NEGATIVE) mg/dL Urine Ketones Negative (NEGATIVE) mg/dL Urine Occult Blood Large (NEGATIVE) Urine Nitrite Negative (NEGAITVE) Urine Bilirubin Small (NEGATIVE) Urine Urobilinogen 4 (NORMAL) mg/dL Ur Leukocyte Esterase Small (NEGATIVE) Urine RBC Packed H (0-5) Urine WBC 5-10 H (0-5) Ur Epithelial Cells Few Amorphous Sediment Few Urine Bacteria Few Urine Mucus Few Urine Other See note Departure - Departure Time of Disposition: 21:23 Disposition: Home, Self-Care 01 Condition: Good Clinical Impression: UTI, Urinary tract infectious disease - Discharge Information Referrals: Rodrigo Harrison PA [Primary Care Provider] - Additional Instructions: Take full course of antibiotics, use Pyridium as needed to help with the burning sensation, Please followup with your primary care provider in 3-5 days if not better, please call return to the emergency department with worsening of symptoms. - My Orders Last 24 Hours: My Active Orders 11/05/17 20:30 UA W/MICROSCOPIC [URIN] Urgent 11/05/17 21:18 CULTURE URINE [RM] Urgent - Assessment/Plan Last 24 Hours: My Active Orders 11/05/17 20:30 UA W/MICROSCOPIC [URIN] Urgent 11/05/17 21:18 CULTURE URINE [RM] Urgent Plan: Assessment Acuity = acute Site and laterality = urinary tract infection Etiology = probable bacterial cause from recent nephrolithiasis and difficulty passing stone Manifestations = hematuria Location of injury = Home Lab values = urinalysis reveals packed rbc's consistent hematuria 5-10 WBCs consistent pyuria hard glucose consistent glucose urea and protein of 30 consistent proteinuria Plan Elected to treat empirically ciprofloxacin 500 mg by mouth twice a day 10 days cultures pending follow-up primary care in 3-5 days if no improvement prescription written for Pyridium 200 mg by mouth 3 times a day when necessary This note was dictated using [employer] voice recognition software please call with any questions on syntax or grammar.
== END 2017-11-05 21:30 | disposition home or self-care (01) ==
LOC: JP.ED 20:00
DX: N39.0 Urinary tract infection, site not specified (principal); J45.909 Unspecified asthma, uncomplicated; Z87.891 Personal history of nicotine dependence; Z88.0 Allergy status to penicillin
CPT/HCPCS: 81001; 87086; 99284

== ENCOUNTER 2017-11-11 17:40 | Emergency (ER) | payer MEDICAID ==
[2017-11-11 17:44] VITALS: BP 130/73
[2017-11-11] MEDS ORDERED: Lidocaine 1% with EPINEPHrine 1:100,000 50 ML MDV INFILT ONE (17:53)
[2017-11-11] MEDS ORDERED: Bacitracin Oint 1 GM U/D Packet TOP ONE (17:53)
--- NOTE | 2017-11-11 18:03 | EDM.PDOC ---
ED HPI GENERAL MEDICAL PROBLEM - General Chief Complaint: Laceration Stated Complaint: cut finger Time Seen by Provider: 11/11/17 17:53 Source of Information: Reports: Patient History Limitations: Reports: No Limitations - History of Present Illness INITIAL COMMENTS - FREE TEXT/NARRATIVE: 27 presents with laceration to left thumb. He was cutting an apple and lacerated his thumb with clean knife. bleeding controlled Tetanus is up to date. he is on cipro associated with passing a kidney stone. Left Hand Pain Score (Numeric/FACES): 0 - Related Data Allergies Allergy/AdvReac Type Severity Reaction Status Date / Time Penicillins Allergy Cannot Verified 11/11/17 17:46 Remember Home Meds: Home Meds NK [No Known Home Meds] 08/10/17 [History] Past Medical History Respiratory History: Reports: Asthma, Other (See Below) Other Respiratory History: childhood asthma Gastrointestinal History: Reports: None Genitourinary History: Reports: Renal Calculus Psychiatric History: Reports: Anxiety Endocrine/Metabolic History: Reports: Obesity/BMI 30+ Dermatologic History: Reports: Other (See Below) Other Dermatologic History: states he has problems with skin "turning different colors." currently uses ointment for problem - Past Surgical History Head Surgeries/Procedures: Reports: None Respiratory Surgical History: Reports: None GI Surgical History: Reports: Hernia Repair/Other Neurological Surgical History: Reports: None Other Oncologic Surgeries/Procedures: LIPOMA REMOVAL Social & Family History - Family History Family Medical History: Noncontributory - Tobacco Use Smoking Status *Q: Never Smoker Second Hand Smoke Exposure: No - Caffeine Use Caffeine Use: Reports: Soda - Recreational Drug Use Recreational Drug Use: No - Living Situation & Occupation Living situation: Reports: (lives with in [place], [place].) ED ROS GENERAL - Review of Systems Review Of Systems: See Below Constitutional: Denies: Fever, Chills Respiratory: Denies: Shortness of Breath, Wheezing Cardiovascular: Denies: Chest Pain ED EXAM, SKIN/RASH Exam: See Below Exam Limited By: No Limitations General Appearance: Alert, WD/WN, No Apparent Distress, Other (exam limited to left hand.) Respiratory/Chest: No Respiratory Distress Extremities: Other (left thumb laceration, cms distal to injury intact. bleeding controled) ED SKIN PROCEDURES - Laceration/Wound Repair Left Anterior Digit - 1st (Thumb) Lac/Wound length In cm: 2.5 Appearance: Superficial, Subcutaneous Distal NVT: Neuro & Vascular Intact, No Tendon Injury Anesthetic Type: Local Local Anesthesia - Lidocaine (Xylocaine): 1% with EPI Local Anesthetic Volume: 3cc Skin Prep: Chlorhexidine (Hibiciens), Saline Saline Irrigation (cc's): 100 Exploration/Debridement/Repair: Wound Explored, In a Bloodless Field, Explored to Base, No Foreign Material Found Closed with: Sutures Suture Size: 4-0 # of Sutures: 6 Suture Type: Nylon, Simple Sterile Dressing Applied: Nurse Tetanus Status Addressed: Yes Complications: No Course - Vital Signs Last Recorded V/S: Last Vital Signs Temp 36.4 C 11/11/17 17:51 Pulse 92 11/11/17 17:51 Resp 16 11/11/17 17:51 BP 130/73 11/11/17 17:51 Pulse Ox 96 11/11/17 17:51 - Orders/Labs/Meds Meds: Medications Discontinued Medications Generic Name Dose Route Start Last Admin Trade Name Dani PRN Reason Stop Dose Admin Bacitracin 1 dose 11/11/17 17:53 11/11/17 18:11 Bacitracin Oint 1 Gm TOP 11/11/17 17:54 1 dose ONETIME ONE Administration Lidocaine/Epinephrine 5 ml 11/11/17 17:53 11/11/17 18:12 Xylocaine 1% With Epinephrine 1:100,000 INFILT 11/11/17 17:54 5 ml ONETIME ONE Administration Departure - Departure Time of Disposition: 18:27 Disposition: Home, Self-Care 01 Condition: Good Clinical Impression: Thumb laceration Qualifiers: Encounter type: initial encounter Damage to nail status: without damage Foreign body presence: without foreign body Laterality: left Qualified Code(s): S61.012A - Laceration without foreign body of left thumb without damage to nail , initial encounter - Discharge Information *PRESCRIPTION DRUG MONITORING PROGRAM REVIEWED*: Not Applicable *COPY OF PRESCRIPTION DRUG MONITORING REPORT IN PATIENT KAREN: Not Applicable Instructions: Sutured Wound Care, [id number] Referrals: Rodrigo Harrison PA [Primary Care Provider] - Forms: ED Department Discharge Additional Instructions: sutures to be removed in 8 days ice as much as possible over the next 24 hours acetaminophen and ibuprofen as needed for pain control observe for signs of infection - increase in pain, purulent drainage, increase in redness keep dry tonight wash with warm soapy water pat dry there after. keep clean
== END 2017-11-11 18:53 | disposition home or self-care (01) ==
LOC: JP.ED 17:40
DX: S61.012A Laceration without foreign body of left thumb without damage to nail, initial encounter (principal); Z88.0 Allergy status to penicillin; W26.0XXA Contact with knife, initial encounter
CPT/HCPCS: 12001; 99283-25

== ENCOUNTER 2018-04-02 00:35 | Emergency (ER) | payer MEDICAID ==
[2018-04-02 01:03] VITALS: BP 152/95
--- NOTE | 2018-04-02 01:10 | EDM.PDOC ---
ED HPI GENERAL MEDICAL PROBLEM - General Chief Complaint: Headache Stated Complaint: HEADACHE Time Seen by Provider: 04/02/18 01:09 Source of Information: Reports: Patient History Limitations: Reports: No Limitations - History of Present Illness INITIAL COMMENTS - FREE TEXT/NARRATIVE: 28-year-old male with a left-sided headache with chewing and swallowing over the past 24 hours. No other symptoms. He has very powerful underlying anxiety about his health and needs reassurance when something is abnormal. He has no fevers or chills, sore throat, recent trauma, rashes or any other symptoms. Onset: Gradual Duration: Day(s): (One day) Location: Reports: Head Severity: Mild Worsens with: Reports: Other (Chewing or swallowing) Treatments METALLURGICAL ANALYST: Reports: Other (see below) Other Treatments METALLURGICAL ANALYST: none Left Parietal Headache Pain Score (Numeric/FACES): 6 - Related Data Allergies Allergy/AdvReac Type Severity Reaction Status Date / Time Penicillins Allergy Cannot Verified 04/02/18 01:03 Remember Home Meds: Home Meds NK [No Known Home Meds] 02/25/18 [History] Past Medical History Respiratory History: Reports: Asthma, Other (See Below) Other Respiratory History: childhood asthma Gastrointestinal History: Reports: None Genitourinary History: Reports: Renal Calculus Psychiatric History: Reports: Anxiety Endocrine/Metabolic History: Reports: Obesity/BMI 30+ Dermatologic History: Reports: Other (See Below) Other Dermatologic History: states he has problems with skin "turning different colors." currently uses ointment for problem - Past Surgical History Head Surgeries/Procedures: Reports: None HEENT Surgical History: Reports: Eye Surgery GI Surgical History: Reports: Hernia Repair/Other Neurological Surgical History: Reports: None Other Oncologic Surgeries/Procedures: LIPOMA REMOVAL Social & Family History - Family History Family Medical History: Noncontributory - Tobacco Use Smoking Status *Q: Never Smoker Second Hand Smoke Exposure: No - Caffeine Use Caffeine Use: Reports: Soda - Recreational Drug Use Recreational Drug Use: No - Living Situation & Occupation Living situation: Reports: (lives with in [place], [place].) ED ROS GENERAL - Review of Systems Review Of Systems: See Below Constitutional: Denies: Fever, Chills, Malaise, Decreased Appetite HEENT: Denies: Throat Pain Respiratory: Denies: Shortness of Breath, Cough Cardiovascular: Denies: Chest Pain GI/Abdominal: Denies: Abdominal Pain, Nausea, Vomiting : Reports: No Symptoms Skin: Reports: No Symptoms Neurological: Reports: Headache (Only when swallowing or chewing, only left- sided) - Physical Exam Exam: See Below Exam Limited By: No Limitations General Appearance: Alert, No Apparent Distress Eye Exam: Bilateral Eye: Normal Inspection Throat/Mouth: Normal Inspection Head Exam: Atraumatic, Other (I cannot reproduce the pain with palpation of the scalp, however when he swallows or clenches his jaw there is a sensation of discomfort on the high temporalis muscle on the left side) Respiratory/Chest: No Respiratory Distress, Lungs Clear Course - Vital Signs Last Recorded V/S: Last Vital Signs Temp 97.2 F 04/02/18 01:01 Pulse 101 H 04/02/18 01:01 Resp 18 04/02/18 01:01 BP 152/95 H 04/02/18 01:01 Pulse Ox 97 04/02/18 01:01 - Re-Assessments/Exams Free Text/Narrative Re-Assessment/Exam: 04/02/18 01:22 Reassured the patient that this is a slight muscle tension discomfort that needs no treatment other than anti-inflammatories and time. Departure - Departure Time of Disposition: 01:28 Disposition: Home, Self-Care 01 Condition: Good Clinical Impression: Tension-type headache - Discharge Information Instructions: Tension Headache, Adult Referrals: PCP,None [Primary Care Provider] - Forms: ED Department Discharge Care Plan Goals: Ibuprofen or naproxen should be helpful, continue activity as tolerated and return if worsening such as fever, sore throat, or more persistent headache.
== END 2018-04-02 01:31 | disposition home or self-care (01) ==
LOC: JP.ED 00:35
DX: G44.209 Tension-type headache, unspecified, not intractable (principal); Z88.0 Allergy status to penicillin
CPT/HCPCS: 99284

== ENCOUNTER 2018-04-27 19:53 | Emergency (ER) | payer MEDICAID ==
[2018-04-27 21:06] VITALS: BP 153/96
--- NOTE | 2018-04-27 21:11 | EDM.PDOC ---
ED HPI GENERAL MEDICAL PROBLEM - General Chief Complaint: Genitourinary Problem Stated Complaint: ACHES AND PAINS GENITAL AREA Time Seen by Provider: 04/27/18 20:30 Source of Information: Reports: Patient History Limitations: Reports: No Limitations - History of Present Illness INITIAL COMMENTS - FREE TEXT/NARRATIVE: 28-year-old male with intermittent very brief left testicular pain and he thought he felt a lump or something abnormal and wanted it checked. He has significant underlying anxiety. He is also concerned about his blood pressure has been elevated the last few times she's been in the ER with a systolic in the 150s. He does not know what his blood pressure runs outside of the hospital. Onset: Unknown/Unsure Associated Symptoms: Reports: No Other Symptoms denies pain Pain Score (Numeric/FACES): 0 - Related Data Allergies Allergy/AdvReac Type Severity Reaction Status Date / Time Penicillins Allergy Cannot Verified 04/27/18 21:02 Remember Home Meds: Home Meds NK [No Known Home Meds] 02/25/18 [History] Past Medical History Respiratory History: Reports: Asthma, Other (See Below) Other Respiratory History: childhood asthma Gastrointestinal History: Reports: None Genitourinary History: Reports: Renal Calculus Psychiatric History: Reports: Anxiety Endocrine/Metabolic History: Reports: Obesity/BMI 30+ Dermatologic History: Reports: Other (See Below) Other Dermatologic History: states he has problems with skin "turning different colors." currently uses ointment for problem - Past Surgical History Head Surgeries/Procedures: Reports: None HEENT Surgical History: Reports: Eye Surgery GI Surgical History: Reports: Hernia Repair/Other Neurological Surgical History: Reports: None Other Oncologic Surgeries/Procedures: LIPOMA REMOVAL Social & Family History - Family History Family Medical History: Noncontributory - Tobacco Use Smoking Status *Q: Never Smoker - Caffeine Use Caffeine Use: Reports: None - Recreational Drug Use Recreational Drug Use: No - Living Situation & Occupation Living situation: Reports: (lives with in [place], [place].) ED ROS GENERAL - Review of Systems Review Of Systems: See Below Constitutional: Denies: Fever, Chills HEENT: Reports: No Symptoms Respiratory: Denies: Shortness of Breath Cardiovascular: Denies: Chest Pain GI/Abdominal: Denies: Abdominal Pain, Diarrhea, Nausea, Vomiting : Denies: Dysuria, Flank Pain, Frequency Skin: Reports: No Symptoms Neurological: Denies: Headache ED EXAM, RENAL/ - Physical Exam Exam: See Below Exam Limited By: No Limitations General Appearance: Alert, No Apparent Distress Respiratory/Chest: No Respiratory Distress GI/Abdominal: Normal Bowel Sounds, Soft (Male) Exam: No Hernia, Normal Inspection, Other (On exam I find no abnormal findings of the testicles, his exam is normal). No: Testicular Tenderness (L), Testicular Tenderness (R) Neurological: Alert, Oriented Course - Vital Signs Last Recorded V/S: Last Vital Signs Temp 98.5 F 04/27/18 21:03 Pulse 104 H 04/27/18 21:03 Resp 16 04/27/18 21:03 BP 153/96 H 04/27/18 21:05 Pulse Ox 98 04/27/18 21:03 - Re-Assessments/Exams Free Text/Narrative Re-Assessment/Exam: 04/27/18 21:10 Patient was reassured, if the symptoms persist or worsen an ultrasound of the testicles may be worthwhile. Departure - Departure Time of Disposition: 21:23 Disposition: Home, Self-Care 01 Condition: Good Clinical Impression: Testicular pain, left - Discharge Information Instructions: Testicular Self-Exam, [id number] Referrals: Rodrigo Harrison PA [Primary Care Provider] - Forms: ED Department Discharge Care Plan Goals: Try not to worry about testicular symptoms unless things are worsening. Talk to Rodrigo Story on Saturday regarding your blood pressure.
== END 2018-04-27 21:22 | disposition home or self-care (01) ==
LOC: JP.ED 19:53
DX: N50.812 Left testicular pain (principal); J45.909 Unspecified asthma, uncomplicated; Z88.0 Allergy status to penicillin
CPT/HCPCS: 99284

== ENCOUNTER 2018-06-20 08:51 | Day surgery (SDC) | payer MEDICAID ==
[2018-06-20] MEDS ORDERED: Lactated Ringers 1,000 ML IV SCH (10:00)
[2018-06-20] MEDS ORDERED: Propofol 200 MG/20 ML SDV ONE ×2 (11:06→11:32)
[2018-06-20] MEDS ORDERED: fentaNYL 100 MCG/2 ML SDV ONE (11:06)
[2018-06-20] MEDS ORDERED: Midazolam 1 MG/ML 2 ML SDV ONE (11:06)
--- NOTE | 2018-06-20 12:36 | OR ---
DATE OF PROCEDURE: 06/20/2018 PREOPERATIVE DIAGNOSIS: Positive FIT test. POSTOPERATIVE DIAGNOSIS: Positive FIT test, pedunculated polyps at 35 cm and 25 cm from the anal verge. PROCEDURE PERFORMED: Colonoscopy to the cecum with snare cautery polypectomy x2 --35 cm and 25 cm from the anal verge. SURGEON: Kishor Yang MD ANESTHESIA: IV anesthesia with monitored anesthesia care. INDICATION: This 28-year-old black male is referred for a colonoscopy because of a positive FIT test. I counseled him for the procedure, including risks and alternatives, and he gave his informed consent to proceed. DESCRIPTION OF PROCEDURE: The patient was placed in the left lateral decubitus position. IV anesthesia was administered by the Anesthesia Service. Time-out was held. A rectal exam was performed, which was unremarkable. The flexible video Olympus colonoscope was introduced through his anus, up his rectum and out his colon all the way to the cecum. Once the cecum was reached, the scope was slowly withdrawn examining the mucosa throughout. No mucosal abnormalities were noted until we reached about 35 cm from the anal verge. Here, we saw a pedunculated polyp. The snare was passed about its base, it was elevated up away from the bowel wall and amputated as electrocautery was applied. The polyp was aspirated up through the scope and captured in a polyp trap. The scope was withdrawn further with another pedunculated polyp seen at 25 cm from the anal verge. This also was removed using the snare. This involved placing the snare about its base. It was elevated up away from the bowel wall and amputated as electrocautery was applied. This polyp was aspirated up through the scope and captured in a polyp trap. There was little bleeding from the stalk and this was cauterized. The scope was then withdrawn further with no other lesions noted. The scope was retroflexed in the rectum with the distal rectum appearing unremarkable. The scope was straightened and removed. He tolerated the procedure well. Kishor Yang MD /[id number] MTDD
[2018-06-20 13:05] VITALS: BP 145/94
== END 2018-06-20 13:23 | disposition home or self-care (01) ==
LOC: JP.SDS 08:51
PROVIDERS: ATTEND Surgery
DX: D12.5 Benign neoplasm of sigmoid colon (principal); J45.909 Unspecified asthma, uncomplicated; I10 Essential (primary) hypertension; F17.200 Nicotine dependence, unspecified, uncomplicated; Z88.0 Allergy status to penicillin
CPT/HCPCS: 45385; J2250; J2704; J3010; J7120

== ENCOUNTER 2018-07-12 23:43 | Emergency (ER) | payer MEDICAID ==
[2018-07-13] MEDS ORDERED: Meclizine 25 MG Tab ONE (00:40)
[2018-07-13] MEDS ORDERED: Meclizine 25 MG Tab PO ONE (00:47)
[2018-07-13 06:33] VITALS: BP 160/104
== END 2018-07-13 01:20 | disposition home or self-care (01) ==
LOC: JP.ED 23:43
DX: R42 Dizziness and giddiness (principal)
CPT/HCPCS: 99283; A9270

== ENCOUNTER 2018-07-13 17:25 | Emergency (ER) | payer MEDICAID | END 2018-07-13 18:49 | disposition left against medical advice (07) | LOC: JP.ED 17:25 | DX: R42 Dizziness and giddiness (principal) | CPT/HCPCS: 99283 ==

== ENCOUNTER 2018-12-27 02:49 | Emergency (ER) | payer MEDICAID ==
[2018-12-27 03:05] VITALS: BP 181/103; PULSE 92
--- NOTE | 2018-12-27 03:35 | EDM.PDOC ---
ED HPI GENERAL MEDICAL PROBLEM - General Chief Complaint: Abdominal Pain Stated Complaint: LOW BACK PAIN, ABD PAIN Time Seen by Provider: 12/27/18 03:15 Source of Information: Reports: Patient History Limitations: Reports: No Limitations - History of Present Illness INITIAL COMMENTS - FREE TEXT/NARRATIVE: 28-year-old male in with intermittent low back discomfort, intermittent mild abdominal gas pains and reflux. He was in the clinic a couple weeks ago and he said his lipase was elevated, he was supposed to be called to schedule a CT scan but he never got called. Tonight he was thinking about this, his back was hurting a little bit so he came in to be seen. No fevers or chills, no nausea or vomiting, no change in bowels. At this time he is asymptomatic. Onset: Unknown/Unsure (Apparently symptoms have been waxing and waning for weeks ) Associated Symptoms: Reports: Other (Slight nausea). Denies: Loss of Appetite, Malaise, Shortness of Breath, Weakness lower abd Pain Score (Numeric/FACES): 3 back Pain Score (Numeric/FACES): 3 - Related Data Allergies Allergy/AdvReac Type Severity Reaction Status Date / Time Penicillins Allergy Swelling Verified 12/27/18 03:02 Home Meds: Home Meds Ketoconazole [Nizoral 2% Shampoo] 1 applic TOP Q7D 06/18/18 [History] Past Medical History Respiratory History: Reports: Asthma, Other (See Below) Other Respiratory History: childhood asthma Gastrointestinal History: Reports: None Genitourinary History: Reports: Renal Calculus Psychiatric History: Reports: Anxiety Endocrine/Metabolic History: Reports: Obesity/BMI 30+ Dermatologic History: Reports: Other (See Below) Other Dermatologic History: states he has problems with skin "turning different colors." currently uses ointment for problem - Past Surgical History Head Surgeries/Procedures: Reports: None HEENT Surgical History: Reports: Eye Surgery GI Surgical History: Reports: Hernia Repair/Other Neurological Surgical History: Reports: None Other Oncologic Surgeries/Procedures: LIPOMA REMOVAL Social & Family History - Family History Family Medical History: Noncontributory - Tobacco Use Smoking Status *Q: Never Smoker - Caffeine Use Caffeine Use: Reports: Soda - Recreational Drug Use Recreational Drug Use: No - Living Situation & Occupation Living situation: Reports: (lives with in [place], [place].) ED ROS GENERAL - Review of Systems Review Of Systems: See Below Constitutional: Denies: Fever, Chills HEENT: Reports: No Symptoms Respiratory: Denies: Shortness of Breath Cardiovascular: Denies: Chest Pain GI/Abdominal: Reports: Abdominal Pain (Mild and intermittent discomfort), Nausea (Mild and intermittent). Denies: Diarrhea, Vomiting : Reports: No Symptoms (Previous history of renal stones, no current symptoms) Musculoskeletal: Reports: Back Pain (Intermittent and mild, none currently) ED EXAM, GI/ABD - Physical Exam Exam: See Below Exam Limited By: No Limitations General Appearance: Alert, No Apparent Distress Eyes: Bilateral: Normal Appearance (No jaundice) Head: Atraumatic Respiratory/Chest: No Respiratory Distress, Lungs Clear Cardiovascular: Regular Rate, Rhythm GI/Abdominal Exam: Normal Bowel Sounds, Soft, Non-Tender Neurological: Alert, Oriented Psychiatric: Normal Affect, Normal Mood Skin Exam: Warm, Dry Course - Vital Signs Last Recorded V/S: Last Vital Signs Temp 98.3 F 12/27/18 03:03 Pulse 92 12/27/18 03:03 Resp 12 12/27/18 03:03 BP 181/103 H 12/27/18 03:03 Pulse Ox 98 12/27/18 03:03 - Orders/Labs/Meds Labs: Laboratory Tests 12/27/18 12/27/18 Range/Units 03:35 03:35 WBC 9.5 (4.5-11.0) K/uL RBC 5.79 (4.30-5.90) M/uL Hgb 15.9 H (12.0-15.0) g/dL Hct 46.4 (40.0-54.0) % MCV 80 (80-98) fL MCH 28 (27-31) pg MCHC 34 (32-36) % Plt Count 256 (150-400) K/uL Neut % (Auto) 46 (36-66) % Lymph % (Auto) 41 (24-44) % [place] % (Auto) 10 H (2-6) % Eos % (Auto) 2 (2-4) % Baso % (Auto) 1 (0-1) % Sodium 142 (140-148) mmol/L Potassium 3.8 (3.6-5.2) mmol/L Chloride 103 (100-108) mmol/L Carbon Dioxide 28 (21-32) mmol/L Anion Gap 11.4 (5.0-14.0) mmol/L BUN 8 (7-18) mg/dL Creatinine 1.0 (0.8-1.3) mg/dL Est Cr Clr Drug Dosing 109.00 mL/min Estimated GFR (MDRD) > 60 (>60) Glucose 104 (74-106) mg/dL Calcium 8.6 (8.5-10.1) mg/dL Total Bilirubin 0.7 (0.2-1.0) mg/dL AST 14 L (15-37) U/L ALT 28 (12-78) U/L Alkaline Phosphatase 113 (46-116) U/L Total Protein 7.3 (6.4-8.2) g/dL Albumin 3.9 (3.4-5.0) g/dL Globulin 3.4 (2.3-3.5) g/dL Albumin/Globulin Ratio 1.1 L (1.2-2.2) Lipase 88 (73-393) U/L - Re-Assessments/Exams Free Text/Narrative Re-Assessment/Exam: 12/27/18 03:34 I tried to obtain his clinical records, my log in and the nurses log in were unsuccessful as I believe there is some maintenance or some other issue going on with the clinic system. This patient has a long history of anxiety about somatic symptoms, a CBC CMP and lipase will be obtained and if normal I'm going to encourage him to start some Prilosec. If abnormal will proceed with further investigation. 12/27/18 04:06 All labs are normal. I suspect his back discomfort is related to his work which is expected. I recommended 20 mg of omeprazole daily for the next 3-4 weeks, and then intermittent as needed. Departure - Departure Time of Disposition: 04:15 Disposition: Home, Self-Care 01 Clinical Impression: Acid reflux Qualifiers: Esophagitis presence: without esophagitis Qualified Code(s): K21.9 - Gastro- esophageal reflux disease without esophagitis Low back pain Qualifiers: Chronicity: acute Back pain laterality: bilateral Sciatica presence: without sciatica Qualified Code(s): M54.5 - Low back pain - Discharge Information Instructions: Heartburn, [id number] Referrals: PCP,None [Primary Care Provider] - Forms: ED Department Discharge Care Plan Goals: Try 20 mg of omeprazole, brand name Prilosec, daily for the next 3-4 weeks. Then use intermittent as needed. Your low back discomfort is probably related to work and is nothing serious, ibuprofen or Tylenol may help. It is important to stay active. Consider rechecking at the clinic in 2-3 weeks if you're not improving.
== END 2018-12-27 04:15 | disposition home or self-care (01) ==
LOC: JP.ED 02:49
DX: K21.9 Gastro-esophageal reflux disease without esophagitis (principal); M54.5 Low back pain; E66.9 Obesity, unspecified; J45.909 Unspecified asthma, uncomplicated; Z88.0 Allergy status to penicillin; Z68.33 Body mass index [BMI] 33.0-33.9, adult
CPT/HCPCS: 36415; 80053; 83690; 85025; 99284

== ENCOUNTER 2019-03-21 00:47 | Emergency (ER) | payer MEDICAID ==
[2019-03-21 01:05] VITALS: BP 184/86; PULSE 88
--- NOTE | 2019-03-21 01:35 | EDM.PDOC ---
ED HPI GENERAL MEDICAL PROBLEM - General Chief Complaint: Chest Pain Stated Complaint: CHEST PAIN, NUMBINESS IN LEFT ARM, SWOLLEN FACE Time Seen by Provider: 03/21/19 01:15 Source of Information: Reports: Patient History Limitations: Reports: No Limitations - History of Present Illness INITIAL COMMENTS - FREE TEXT/NARRATIVE: 29-year-old male who has chronic multiple concerns about his health and chronic anxiety, presents with intermittent brief left chest pain, intermittent swelling of his left face, intermittent dark stools and intermittent constipation. He was on his way over to exercise and thought he should get checked out first because of the intermittent chest pain. The pain only lasts a few seconds, he tends not to get pain while exercising. He admits he takes Pepto-Bismol at times that may be correlated with his stool, however he had a colonoscopy last June and some polyps were found. Onset: Unknown/Unsure Associated Symptoms: Reports: Chest Pain (Brief left-sided chest pain, lasting seconds). Denies: Fever/Chills, Loss of Appetite, Shortness of Breath Left Upper Chest Pain Score (Numeric/FACES): 5 - Related Data Allergies Allergy/AdvReac Type Severity Reaction Status Date / Time Penicillins Allergy Swelling Verified 03/21/19 00:58 Home Meds: Home Meds Ketoconazole [Nizoral 2% Shampoo] 1 applic TOP Q7D 06/18/18 [History] amLODIPine [Norvasc] 2.5 mg PO DAILY 03/21/19 [History] Past Medical History Cardiovascular History: Reports: Hypertension Respiratory History: Reports: Asthma, Other (See Below) Other Respiratory History: childhood asthma Gastrointestinal History: Reports: None Genitourinary History: Reports: Renal Calculus Psychiatric History: Reports: Anxiety Endocrine/Metabolic History: Reports: Obesity/BMI 30+ Dermatologic History: Reports: Other (See Below) Other Dermatologic History: states he has problems with skin "turning different colors." currently uses ointment for problem - Past Surgical History Head Surgeries/Procedures: Reports: None HEENT Surgical History: Reports: Eye Surgery GI Surgical History: Reports: Hernia Repair/Other Other Oncologic Surgeries/Procedures: LIPOMA REMOVAL Social & Family History - Family History Family Medical History: Noncontributory - Tobacco Use Smoking Status *Q: Never Smoker - Caffeine Use Caffeine Use: Reports: None - Recreational Drug Use Recreational Drug Use: No - Living Situation & Occupation Living situation: Reports: (lives with in [place], [place].) ED ROS GENERAL - Review of Systems Review Of Systems: See Below Constitutional: Denies: Fever, Chills HEENT: Reports: Other (Intermittent left jaw swelling, no dental pain) Respiratory: Denies: Shortness of Breath Cardiovascular: Denies: Chest Pain, Palpitations GI/Abdominal: Denies: Abdominal Pain, Nausea, Vomiting Skin: Reports: No Symptoms Neurological: Denies: Headache ED EXAM, GENERAL - Physical Exam Exam: See Below Exam Limited By: No Limitations General Appearance: Alert, No Apparent Distress Head: Atraumatic Respiratory/Chest: No Respiratory Distress, Lungs Clear Cardiovascular: Regular Rate, Rhythm GI/Abdominal: Soft, Non-Tender Rectal (Males) Exam: Normal Exam Neurological: Alert, Oriented Skin Exam: Warm, Dry EKG INTERPRETATION Rhythm: NSR Course - Vital Signs Last Recorded V/S: Last Vital Signs Temp 99.1 F 03/21/19 01:02 Pulse 88 03/21/19 01:02 Resp 16 03/21/19 01:02 BP 184/86 H 03/21/19 01:02 Pulse Ox 98 03/21/19 01:02 - Orders/Labs/Meds Orders: Active Orders 24 hr Category Date Time Status EKG Documentation Completion [RC] ASDIRECTED Care 03/21/19 01:13 Active EKG 12 Lead [EK] Routine Ther 03/21/19 01:12 Ordered - Re-Assessments/Exams Free Text/Narrative Re-Assessment/Exam: 03/21/19 01:34 EKG was normal, was in the process of reassuring him when he brought up his intermittent dark stools. A guaiac was obtained, the stool present was very light brown and his rectal exam was normal. 03/21/19 01:36 Stool guaiac was negative, patient was reassured. Departure - Departure Time of Disposition: 01:44 Disposition: Home, Self-Care 01 Clinical Impression: Atypical chest pain - Discharge Information Instructions: Nonspecific Chest Pain Referrals: Smith Reynoso MD [Primary Care Provider] - Forms: ED Department Discharge Care Plan Goals: Continue exercising as usual, continue to take your medication as prescribed. Return anytime if worsening or concerns. Sepsis Event Note - Evaluation Sepsis Screening Result: No Definite Risk - Focused Exam Vital Signs: Vital Signs Temp Pulse Resp BP Pulse Ox 03/21/19 01:02 99.1 F 88 16 184/86 H 98 Date Exam was Performed: 03/21/19 Time Exam was Performed: 02:42 - My Orders Last 24 Hours: My Active Orders 03/21/19 01:12 EKG 12 Lead [EK] Routine 03/21/19 01:13 EKG Documentation Completion [RC] ASDIRECTED - Assessment/Plan Last 24 Hours: My Active Orders 03/21/19 01:12 EKG 12 Lead [EK] Routine 03/21/19 01:13 EKG Documentation Completion [RC] ASDIRECTED
== END 2019-03-21 01:44 | disposition home or self-care (01) ==
LOC: JP.ED 00:47
DX: R07.89 Other chest pain (principal); I10 Essential (primary) hypertension; E66.9 Obesity, unspecified; Z88.0 Allergy status to penicillin
CPT/HCPCS: 82272; 93005; 93010; 99285-25

== ENCOUNTER 2019-07-26 01:19 | Emergency (ER) | payer MEDICAID ==
[2019-07-26 01:47] VITALS: BP 160/94; PULSE 91
--- NOTE | 2019-07-26 01:48 | EDM.PDOC ---
ED HPI GENERAL MEDICAL PROBLEM - General Chief Complaint: Lower Extremity Injury/Pain Stated Complaint: LEFT LEG PAIN Time Seen by Provider: 07/26/19 01:55 Source of Information: Reports: Patient, Old Records, RN History Limitations: Reports: No Limitations - History of Present Illness INITIAL COMMENTS - FREE TEXT/NARRATIVE: 29 yo black male comes into the ER tonight just before 0200h with a 3 d hx of L ambriz pain that is worse since he started running more on a treadmill. Has been bothering him for the past 3 days. Tonight he noticed also some mild numbness of his L great and 2nd toes. There has not been an injury and he has not noticed any redness or swelling and no pain with movement. When he was to his doctor last his BS was a little elevated. He wonders if there is any way we can check his BS tonight. Isn't so concerned about being started on medicine for this, just wants to know the number. Says he is taking his BP med as prescribed. Tells nursing he has a primary care provider in [place]. Thinks he might be urinating more often lately. Onset: Gradual Onset Date: 07/23/19 (L ambriz tenderness) Duration: Day(s):, Intermittent (more with walking) Location: Reports: Lower Extremity, Left Quality: Reports: Ache Severity: Mild Improves with: Reports: Rest Worsens with: Reports: Movement (running) Context: Reports: Other (See HPI) Associated Symptoms: Reports: No Other Symptoms Treatments [employer]: Reports: Other (see below) (none) left ambriz Pain Score (Numeric/FACES): 4 - Related Data Allergies Allergy/AdvReac Type Severity Reaction Status Date / Time Penicillins Allergy Swelling Verified 07/26/19 01:47 Home Meds: Home Meds Ketoconazole [Nizoral 2% Shampoo] 1 applic TOP Q7D PRN 06/18/18 [History] amLODIPine [Norvasc] 2.5 mg PO DAILY 03/21/19 [History] Past Medical History Cardiovascular History: Reports: Hypertension Respiratory History: Reports: Asthma, Other (See Below) Other Respiratory History: childhood asthma Gastrointestinal History: Reports: None Genitourinary History: Reports: Renal Calculus Psychiatric History: Reports: Anxiety Endocrine/Metabolic History: Reports: Obesity/BMI 30+ Dermatologic History: Reports: Other (See Below) Other Dermatologic History: states he has problems with skin "turning different colors." currently uses ointment for problem - Past Surgical History Head Surgeries/Procedures: Reports: None HEENT Surgical History: Reports: Eye Surgery GI Surgical History: Reports: Hernia Repair/Other Other Oncologic Surgeries/Procedures: LIPOMA REMOVAL Social & Family History - Family History Family Medical History: Noncontributory - Caffeine Use Caffeine Use: Reports: None - Living Situation & Occupation Living situation: Reports: (lives with in [place], [place].) Review of Systems - Review of Systems Review Of Systems: See Below Constitutional: Reports: No Symptoms Musculoskeletal: Reports: Leg Pain (L ambriz) Skin: Reports: No Symptoms Neurological: Reports: Numbness (L 2nd and 3rd toes) ED EXAM, GENERAL - Physical Exam Exam: See Below Exam Limited By: No Limitations General Appearance: Alert, WD/WN, No Apparent Distress Ears: Normal External Exam, Normal Canal, Hearing Grossly Normal. No: Hearing Loss Nose: Normal Inspection Throat/Mouth: Normal Inspection, Normal Voice, No Airway Compromise Head: Atraumatic, Normocephalic Neck: Normal Inspection Respiratory/Chest: No Respiratory Distress, No Accessory Muscle Use Extremities: Normal Inspection, Normal Range of Motion, Non-Tender, No Pedal Edema. No: Pedal Edema, Joint Swelling, Limited Range of Motion, Increased Warmth, Redness Neurological: Alert, Oriented, CN II-XII Intact, Normal Cognition, No Motor/ Sensory Deficits Psychiatric: Normal Affect, Normal Mood Skin Exam: Warm, Dry, Intact, Normal Color, No Rash Course - Vital Signs Last Recorded V/S: Last Vital Signs Temp 37.1 C 07/26/19 01:45 Pulse 91 07/26/19 01:45 Resp 18 07/26/19 01:45 BP 160/94 H 07/26/19 01:45 Pulse Ox 99 07/26/19 01:45 Departure - Departure Time of Disposition: 02:07 Disposition: Home, Self-Care 01 Condition: Good Clinical Impression: In stable condition - Discharge Information *PRESCRIPTION DRUG MONITORING PROGRAM REVIEWED*: Not Applicable *COPY OF PRESCRIPTION DRUG MONITORING REPORT IN PATIENT KAREN: Not Applicable Referrals: PCP,None [Primary Care Provider] - Forms: ED Department Discharge Additional Instructions: Follow up with your provider to discuss your non-emergent medical condition. Sepsis Event Note - Focused Exam Vital Signs: Vital Signs Temp Pulse Resp BP Pulse Ox 07/26/19 01:45 37.1 C 91 18 160/94 H 99 Date Exam was Performed: 07/26/19 Time Exam was Performed: 01:58
== END 2019-07-26 02:39 | disposition home or self-care (01) ==
LOC: JP.ED 01:19
DX: M79.662 Pain in left lower leg (principal); I10 Essential (primary) hypertension; E66.9 Obesity, unspecified; Z68.33 Body mass index [BMI] 33.0-33.9, adult; Z79.899 Other long term (current) drug therapy; Z88.0 Allergy status to penicillin
CPT/HCPCS: 99283

== ENCOUNTER 2020-01-17 11:38 | Emergency (ER) | payer MEDICAID ==
[2020-01-17 12:05] VITALS: BP 146/101; PULSE 91
[2020-01-17] MEDS ORDERED: Acetaminophen 500 MG Tab PO ONE (12:30)
[2020-01-17] MEDS ORDERED: Ondansetron 4 MG Tab.DIS PO ONE (12:30)
--- NOTE | 2020-01-17 12:54 | EDM.PDOC ---
ED HPI GENERAL MEDICAL PROBLEM - General Chief Complaint: Headache Stated Complaint: HEADACHE,NASEA Time Seen by Provider: 01/17/20 12:20 Source of Information: Reports: Patient, Family History Limitations: Reports: No Limitations - History of Present Illness INITIAL COMMENTS - FREE TEXT/NARRATIVE: 29-year-old male has had a headache for the last 1 to 2 weeks, saw his primary l ast week and was advised to take ibuprofen. Over the last 12 hours has had persistent nausea so came in to be seen. No neurologic deficits, no visual complaints, headache is left temporal radiating to the occipital area of the head. No diarrhea or abdominal pain. Reviewing his record he has complained about headaches 3 times over the past 3 years, all the left temporal area and he has had a neurology consult and CT scan which was negative. Onset: Unknown/Unsure Duration: Week(s): (Headaches off and on for 2 weeks, nausea for 12 hours) Location: Reports: Head (Left temporal area) - Related Data Allergies Allergy/AdvReac Type Severity Reaction Status Date / Time Penicillins Allergy Swelling Verified 01/17/20 12:05 Home Meds: Home Meds Ketoconazole [Nizoral 2% Shampoo] 1 applic TOP Q7D PRN 06/18/18 [History] amLODIPine [Norvasc] 2.5 mg PO DAILY 03/21/19 [History] Past Medical History Cardiovascular History: Reports: Hypertension Respiratory History: Reports: Asthma, Other (See Below) Other Respiratory History: childhood asthma Gastrointestinal History: Reports: None Genitourinary History: Reports: Renal Calculus Psychiatric History: Reports: Anxiety Endocrine/Metabolic History: Reports: Obesity/BMI 30+ Dermatologic History: Reports: Other (See Below) Other Dermatologic History: states he has problems with skin "turning different colors." currently uses ointment for problem - Past Surgical History Head Surgeries/Procedures: Reports: None HEENT Surgical History: Reports: Eye Surgery GI Surgical History: Reports: Hernia Repair/Other Neurological Surgical History: Reports: None Other Oncologic Surgeries/Procedures: LIPOMA REMOVAL Social & Family History - Family History Family Medical History: Noncontributory - Tobacco Use Tobacco Use Status *Q: Never Tobacco User - Caffeine Use Caffeine Use: Reports: None - Living Situation & Occupation Living situation: Reports: (lives with in [place], [place].) ED ROS GENERAL - Review of Systems Review Of Systems: See Below Constitutional: Reports: Malaise. Denies: Fever, Chills HEENT: Reports: No Symptoms Respiratory: Denies: Shortness of Breath Cardiovascular: Denies: Chest Pain GI/Abdominal: Reports: Nausea. Denies: Abdominal Pain, Constipation, Diarrhea, Vomiting : Reports: No Symptoms Musculoskeletal: Reports: No Symptoms Skin: Reports: No Symptoms Neurological: Reports: Headache. Denies: Confusion, Dizziness, Weakness Psychiatric: Reports: Anxiety - Physical Exam Exam: See Below Exam Limited By: No Limitations General Appearance: Alert, No Apparent Distress Eye Exam: Bilateral Eye: Normal Inspection Head Exam: Atraumatic, Other (Mild discomfort with palpation along the left temporalis muscle) Neck: Supple, Non-Tender Cardiovascular: Regular Rate, Rhythm GI/Abdominal: Soft, Non-Tender Neuro Exam (Abbreviated): Alert, Oriented, No Motor/Sensory Deficits Psychiatric: Normal Affect, Normal Mood Skin Exam: Warm, Dry Course - Vital Signs Last Recorded V/S: Last Vital Signs Temp 98.2 F 01/17/20 12:09 Pulse 91 01/17/20 12:09 Resp 16 01/17/20 12:09 BP 146/101 H 01/17/20 12:09 Pulse Ox 98 01/17/20 12:09 - Orders/Labs/Meds Labs: Laboratory Tests 01/17/20 01/17/20 Range/Units 12:40 12:40 WBC 6.9 (4.5-11.0) K/uL RBC 5.94 H (4.30-5.90) M/uL Hgb 16.0 H (12.0-15.0) g/dL Hct 46.8 (40.0-54.0) % MCV 79 L (80-98) fL MCH 27 (27-31) pg MCHC 34 (32-36) % Plt Count 257 (150-400) K/uL Neut % (Auto) 53 (36-66) % Lymph % (Auto) 32 (24-44) % [place] % (Auto) 12 H (2-6) % Eos % (Auto) 2 (2-4) % Baso % (Auto) 2 H (0-1) % Sodium 139 L (140-148) mmol/L Potassium 3.4 L (3.6-5.2) mmol/L Chloride 103 (100-108) mmol/L Carbon Dioxide 29 (21-32) mmol/L Anion Gap 10.4 (5.0-14.0) mmol/L BUN 9 (7-18) mg/dL Creatinine 1.1 (0.8-1.3) mg/dL Est Cr Clr Drug Dosing 98.19 mL/min Estimated GFR (MDRD) > 60 (>60) Glucose 90 (74-106) mg/dL Calcium 8.7 (8.5-10.1) mg/dL Total Bilirubin 1.3 H D (0.2-1.0) mg/dL AST 25 D (15-37) U/L ALT 35 (12-78) U/L Alkaline Phosphatase 96 (46-116) U/L C-Reactive Protein 0.00 (0.0-0.3) mg/dL Total Protein 7.2 (6.4-8.2) g/dL Albumin 3.9 (3.4-5.0) g/dL Globulin 3.3 (2.3-3.5) g/dL Albumin/Globulin Ratio 1.2 (1.2-2.2) Meds: Medications Discontinued Medications Generic Name Dose Route Start Last Admin Trade Name Freq PRN Reason Stop Dose Admin Acetaminophen 1,000 mg 01/17/20 12:30 01/17/20 12:38 Tylenol Extra Strength PO 01/17/20 12:31 1,000 mg ONETIME ONE Administration Ondansetron HCl 4 mg 01/17/20 12:30 01/17/20 12:38 Zofran Odt PO 01/17/20 12:31 4 mg ONETIME ONE Administration - Re-Assessments/Exams Free Text/Narrative Re-Assessment/Exam: 01/17/20 12:54 Patient was given 1000 mg of acetaminophen, 4 mg of oral Zofran and a CBC and CMP obtained. 01/17/20 13:25 45 minutes after the medications, patient felt a whole lot better. Labs were reassuring, bilirubin was slightly elevated and that has been normal in the past, but all other LFTs were fine. He will return if he develops abdominal pain or fever. He will be discharged with 5 doses of Zofran. I encouraged him to stop ibuprofen and use Tylenol for his headache. Departure - Departure Time of Disposition: 13:34 Disposition: Home, Self-Care 01 Clinical Impression: Nausea without vomiting, Left-sided headache - Discharge Information Instructions: Nausea, Adult, [id number] Referrals: Smith Reynoso MD [Primary Care Provider] - Forms: ED Department Discharge Care Plan Goals: Stop ibuprofen, use Tylenol or acetaminophen and Zofran as needed for persistent nausea. Consider rechecking if you are worsening such as increased abdominal pain, vomiting, fever or other concerns. Sepsis Event Note (ED) - Evaluation Sepsis Screening Result: No Definite Risk - Focused Exam Vital Signs: Vital Signs Temp Pulse Resp BP Pulse Ox 01/17/20 12:09 98.2 F 91 16 146/101 H 98 01/17/20 12:03 98.2 F 91 16 146/101 H 98
== END 2020-01-17 13:35 | disposition home or self-care (01) ==
LOC: JP.ED 11:38
DX: R51.9 Headache, unspecified (principal); R11.0 Nausea; J45.909 Unspecified asthma, uncomplicated; E66.9 Obesity, unspecified; Z79.899 Other long term (current) drug therapy; Z68.32 Body mass index [BMI] 32.0-32.9, adult; Z88.0 Allergy status to penicillin
CPT/HCPCS: 36415; 80053; 85025; 86140; 99284; A9270

== ENCOUNTER 2020-04-11 11:38 | Emergency (ER) | payer MEDICAID ==
[2020-04-11 11:58] VITALS: BP 143/69; PULSE 88
[2020-04-11] MEDS ORDERED: Sodium Chloride 0.9% 1,000 ML IV SCH (15:00)
--- NOTE | 2020-04-11 15:25 | EDM.PDOC ---
ED HPI GENERAL MEDICAL PROBLEM - General Chief Complaint: General Stated Complaint: NUMBNESS IN FINGERS AND TOES Time Seen by Provider: 04/11/20 11:45 Source of Information: Reports: Patient History Limitations: Reports: No Limitations - History of Present Illness INITIAL COMMENTS - FREE TEXT/NARRATIVE: pt arrived because he was lit headed. He was concerned that his bs was elevated. He worked out and did increase his work out and did not drink fluids, Onset: Today, Sudden Duration: Hour(s): Location: Reports: Generalized Associated Symptoms: Reports: Weakness, Other ( dizzy. ) - Related Data Allergies Allergy/AdvReac Type Severity Reaction Status Date / Time Penicillins Allergy Swelling Verified 01/17/20 12:05 Home Meds: Home Meds Ketoconazole [Nizoral 2% Shampoo] 1 applic TOP Q7D PRN 06/18/18 [History] amLODIPine [Norvasc] 2.5 mg PO DAILY 03/21/19 [History] Cyanocobalamin (Vitamin B12) [Vitamin B13] 500 mcg PO DAILY 04/11/20 [History] Past Medical History Cardiovascular History: Reports: Hypertension Respiratory History: Reports: Asthma, Other (See Below) Other Respiratory History: childhood asthma Gastrointestinal History: Reports: None Genitourinary History: Reports: Renal Calculus Psychiatric History: Reports: Anxiety Endocrine/Metabolic History: Reports: Obesity/BMI 30+ Dermatologic History: Reports: Other (See Below) Other Dermatologic History: states he has problems with skin "turning different colors." currently uses ointment for problem - Past Surgical History Head Surgeries/Procedures: Reports: None HEENT Surgical History: Reports: Eye Surgery Respiratory Surgical History: Reports: None GI Surgical History: Reports: Hernia Repair/Other Neurological Surgical History: Reports: None Oncologic Surgical History: Reports: Other (See Below) Other Oncologic Surgeries/Procedures: LIPOMA REMOVAL Dermatological Surgical History: Reports: None Social & Family History - Family History Family Medical History: No Pertinent Family History - Tobacco Use Tobacco Use Status *Q: Never Tobacco User - Caffeine Use Caffeine Use: Reports: None - Recreational Drug Use Recreational Drug Use: No - Living Situation & Occupation Living situation: Reports: (lives with in [place], [place].) ED ROS GENERAL - Review of Systems Review Of Systems: See Below Constitutional: Reports: No Symptoms HEENT: Reports: No Symptoms Respiratory: Reports: No Symptoms Cardiovascular: Reports: No Symptoms Endocrine: Reports: No Symptoms GI/Abdominal: Reports: No Symptoms : Reports: No Symptoms Musculoskeletal: Reports: No Symptoms Neurological: Reports: Dizziness Psychiatric: Reports: Anxiety ED EXAM, GENERAL - Physical Exam Exam: See Below Free Text/Narrative:: pt arrived with dizziness. He was concerned that his bs was elevated. Exam Limited By: No Limitations General Appearance: Alert, No Apparent Distress, Anxious, Other (pupils equal and reactive. ) Ears: Normal TMs Nose: Normal Inspection Throat/Mouth: Normal Inspection Head: Atraumatic Neck: Normal Inspection Respiratory/Chest: No Respiratory Distress Cardiovascular: Regular Rate, Rhythm GI/Abdominal: Soft, Non-Tender (Male) Exam: Deferred Rectal (Males) Exam: Deferred Back Exam: Normal Inspection Extremities: Normal Inspection Neurological: Alert, Oriented, Normal Cognition Course - Vital Signs Last Recorded V/S: Last Vital Signs Temp 37.4 C 04/11/20 15:13 Pulse 88 04/11/20 15:13 Resp 18 04/11/20 15:13 BP 143/69 H 04/11/20 15:13 Pulse Ox 97 04/11/20 15:13 Orthostatic Blood Pressure [ 145/86 Standing] Orthostatic Blood Pressure [ 156/90 Sitting] Orthostatic Blood Pressure [ 143/69 Supine] - Orders/Labs/Meds Orders: Active Orders 24 hr Category Date Time Status EKG Documentation Completion [RC] ASDIRECTED Care 04/11/20 14:55 Active Sodium Chloride 0.9% [Normal Saline] 1,000 ml Med 04/11/20 15:00 Active IV ASDIRECTED EKG 12 Lead [EK] Routine Ther 04/11/20 14:55 Ordered Medication Orders Sodium Chloride (Normal Saline) 1,000 mls @ 999 mls/hr IV ASDIRECTED GREGORIO Last Admin: 04/11/20 15:12 Dose: 999 mls/hr Documented by: JUDE Labs: Laboratory Tests 04/11/20 04/11/20 04/11/20 Range/Units 13:03 13:03 14:29 WBC 7.0 (4.5-11.0) K/uL RBC 5.93 H (4.30-5.90) M/uL Hgb 16.2 H (12.0-15.0) g/dL Hct 47.1 (40.0-54.0) % MCV 79 L (80-98) fL MCH 27 (27-31) pg MCHC 34 (32-36) % Plt Count 249 (150-400) K/uL Sodium 141 (140-148) mmol/L Potassium 3.6 (3.6-5.2) mmol/L Chloride 105 (100-108) mmol/L Carbon Dioxide 30 (21-32) mmol/L Anion Gap 6.1 (5.0-14.0) mmol/L BUN 10 (7-18) mg/dL Creatinine 1.1 (0.8-1.3) mg/dL Est Cr Clr Drug Dosing 97.30 mL/min Estimated GFR (MDRD) > 60 (>60) Glucose 84 (74-106) mg/dL Calcium 8.9 (8.5-10.1) mg/dL Total Bilirubin 1.2 H (0.2-1.0) mg/dL AST 14 L (15-37) U/L ALT 27 (12-78) U/L Alkaline Phosphatase 103 (46-116) U/L Total Protein 7.0 (6.4-8.2) g/dL Albumin 3.8 (3.4-5.0) g/dL Globulin 3.2 (2.3-3.5) g/dL Albumin/Globulin Ratio 1.2 (1.2-2.2) Urine Color Yellow (YELLOW) Urine Appearance Clear (CLEAR) Urine pH 7.0 (5.0-8.0) Ur Specific [place] 1.015 (1.008-1.030) Urine Protein Negative (NEGATIVE) mg/dL Urine Glucose (UA) Negative (NEGATIVE) mg/dL Urine Ketones Negative (NEGATIVE) mg/dL Urine Occult Blood Negative (NEGATIVE) Urine Nitrite Negative (NEGATIVE) Urine Bilirubin Negative (NEGATIVE) Urine Urobilinogen 0.2 (0.2-1.0) EU/dL Ur Leukocyte Esterase Negative (NEGATIVE) Urine RBC Not seen (0-5) Urine WBC 0-5 (0-5) Ur Epithelial Cells Rare Amorphous Sediment Not seen Urine Bacteria Few Urine Mucus Not seen Meds: Medications Generic Name Dose Route Start Last Admin Trade Name Freq PRN Reason Stop Dose Admin Sodium Chloride 1,000 mls @ 999 mls/hr 04/11/20 15:00 04/11/20 15:12 Normal Saline IV 999 mls/hr ASDIRECTED GREGORIO Administration - Re-Assessments/Exams Free Text/Narrative Re-Assessment/Exam: 04/11/20 16:23 pt had normal bs and other labs looked good. His orthostatics looked good. He was given a liter of fluid and did feel alot better. 04/11/20 16:23 Departure - Departure Time of Disposition: 16:19 Disposition: Home, Self-Care 01 Condition: Fair Clinical Impression: Dehydration - Discharge Information Referrals: PCP,None [Primary Care Provider] - Forms: ED Department Discharge Care Plan Goals: push fluids particularly when working out. Sepsis Event Note (ED) - Evaluation Sepsis Screening Result: No Definite Risk - Focused Exam Vital Signs: Vital Signs Temp Pulse Resp BP Pulse Ox 04/11/20 15:13 37.4 C 88 18 143/69 H 97 04/11/20 11:55 37.4 C 88 18 143/69 H 97 - My Orders Last 24 Hours: My Active Orders 04/11/20 14:55 EKG Documentation Completion [RC] ASDIRECTED EKG 12 Lead [EK] Routine 04/11/20 15:00 Sodium Chloride 0.9% [Normal Saline] 1,000 ml IV ASDIRECTED - Assessment/Plan Last 24 Hours: My Active Orders 04/11/20 14:55 EKG Documentation Completion [RC] ASDIRECTED EKG 12 Lead [EK] Routine 04/11/20 15:00 Sodium Chloride 0.9% [Normal Saline] 1,000 ml IV ASDIRECTED
== END 2020-04-11 16:25 | disposition home or self-care (01) ==
LOC: JP.ED 11:38
DX: E86.0 Dehydration (principal); I10 Essential (primary) hypertension; J45.909 Unspecified asthma, uncomplicated; E66.9 Obesity, unspecified; Z88.0 Allergy status to penicillin; Z68.32 Body mass index [BMI] 32.0-32.9, adult
CPT/HCPCS: 36415; 80053; 81001; 85027; 93005; 93010; 99283; 99284; J7030

== ENCOUNTER 2021-05-24 11:18 | Emergency (ER) | payer BC, MEDICAID ==
[2021-05-24 11:37] VITALS: BP 158/97; PULSE 83
== END 2021-05-24 13:27 | disposition home or self-care (01) ==
LOC: JP.ED 11:18
DX: F41.9 Anxiety disorder, unspecified (principal); R00.2 Palpitations; I10 Essential (primary) hypertension; J45.909 Unspecified asthma, uncomplicated; E66.9 Obesity, unspecified; Z68.32 Body mass index [BMI] 32.0-32.9, adult; Z88.0 Allergy status to penicillin; Z87.891 Personal history of nicotine dependence
CPT/HCPCS: 36415; 80053; 85025; 99282; 99284

== ENCOUNTER 2022-01-21 01:06 | Emergency (ER) | payer BC, MEDICAID ==
[2022-01-21 02:25] VITALS: BP 178/93; PULSE 103
== END 2022-01-21 02:30 | disposition home or self-care (01) ==
LOC: JP.ED 01:06
DX: R06.02 Shortness of breath (principal); F41.9 Anxiety disorder, unspecified; I10 Essential (primary) hypertension; E66.9 Obesity, unspecified; Z68.30 Body mass index [BMI] 30.0-30.9, adult; Z88.0 Allergy status to penicillin
CPT/HCPCS: 99284

== ENCOUNTER 2023-07-03 19:30 | Emergency (ER) | payer MEDICAID ==
[2023-07-03 20:06] VITALS: BP 153/104; PULSE 94
[2023-07-03 20:54] LABS: BASOPHILS PERCENT AUTO 1.1 % (0.1-1.3); EOSINOPHILS ABSOLUTE AUTO 0.12 K/uL (0.00-0.40); EOSINOPHILS PERCENT AUTO 1.3 % (0.0-5.4); HEMATOCRIT 45.6 % (38.4-49.7); IMMATURE GRAN ABSOLUTE AUTO 0.02 K/uL (0.00-0.23); IMMATURE GRAN PERCENT AUTO 0.2 % (0.0-0.7); LYMPHOCYTES ABSOLUTE AUTO 2.75 K/uL (0.8-3.3); LYMPHOCYTES PERCENT AUTO 29.9 % (11.4-47.7); MEAN CORPUSCULAR HEMOGLOBIN 27.8 pg (31.6-35.5); MEAN CORPUSCULAR HGB CONC 35.1 g/dL (31.6-35.5); MEAN CORPUSCULAR VOLUME 79.2 fL (81.4-99.0); MONOCYTES ABSOLUTE AUTO 0.97 K/uL (0.20-0.90); MONOCYTES PERCENT AUTO 10.5 % (3.3-12.6); NEUTROPHILS ABSOLUTE AUTO 5.25 K/uL (1.0-7.6); PLATELET COUNT,PLT 264 K/uL (130-375); RED BLOOD CELL COUNT 5.76 M/uL (4.14-5.76); WHITE BLOOD CELL COUNT,WBC 9.2 K/uL (3.2-11.0)
[2023-07-03 21:16] LABS: A/G RATIO 1.1 (1.2-2.2); ALANINE AMINOTRANSFERASE,ALT 45 U/L (12-78); ALKALINE PHOSPHATASE 125 U/L (46-116); ANION GAP 10.4 mmol/L (5.0-14.0); ASPARTATE AMNIOTRANSFERASE,AST 22 U/L (15-37); BILIRUBIN TOTAL 1.1 mg/dL (0.2-1.0); BLOOD UREA NITROGEN,BUN 9 mg/dL (7-18); C-REACTIVE PROTEIN < 0.50 mg/dL (<0.50); CARBON DIOXIDE,CO2 31 mmol/L (21-32); CHLORIDE,CL 102 mmol/L (100-108); CREATININE 1.1 mg/dL (0.8-1.3); ESTIMATED GFR 90 mL/min (>60); GLUCOSE RANDOM 110 mg/dL (74-106); POTASSIUM,K 3.4 mmol/L (3.6-5.2); PROTEIN TOTAL,TP 7.7 g/dL (6.4-8.2); SODIUM,NA 140 mmol/L (140-148)
== END 2023-07-03 21:37 | disposition home or self-care (01) ==
LOC: JP.ED 19:30
DX: R10.11 Right upper quadrant pain (principal); I10 Essential (primary) hypertension; E66.9 Obesity, unspecified; Z68.35 Body mass index [BMI] 35.0-35.9, adult; Z88.0 Allergy status to penicillin; Z79.899 Other long term (current) drug therapy; Z86.16 Personal history of COVID-19; Z87.891 Personal history of nicotine dependence
CPT/HCPCS: 36415; 80053; 85025; 86140; 99284